=== PATIENT | male | born 1980 | race Caucasian/White ===

== ENCOUNTER 2024-02-22 21:47 | Inpatient (IN) | payer MEDICAID, SELFPAY ==
[2024-02-22 21:48] VITALS: BMI 25.0
[2024-02-22 21:52] VITALS: BP 139/55; PULSE 157; RESP 24; TEMP 39; O2SAT 95
--- NOTE | 2024-02-22 22:19 | EDNOTE_ITS ---
ED Fever RME/HPI General Chief Complaint: Fever Stated Complaint: FEVER Time Seen by Provider: 02/22/24 22:16 Source: patient Arrival date/time: 02/22/24 21:47 Mode of arrival: ambulatory Limitations: no limitations RME / HPI RME / HPI Narrative: --- DR. ESTRADA MAIN ED EVALUATION: 43-year-old male coming in with fever over the last 2 to 3 days despite Tylenol Motrin. Patient has nonproductive cough over the last 2 to 3 days. The patient has not taken his fever but he states that he feels hot. Active chills. The patient is also worried because he has not had his sutures out. He had surgery February 05 from the hospital and returned on February 17 here to the emergency department to have his sutures removed. The patient got frustrated and decided to leave without being seen. Chest x-ray that day on February 17 showed multiple pneumonia. Patient states he feels generally bad. Patient has no discharge at the sutures that were not removed. Requesting that we remove his sutures. No dysuria, back pain, neck pain, vomiting. Related Data Home Medications ?Medication ?Instructions ?Recorded ?Confirmed No Known Home Medications 02/23/24 02/23/24 Allergies Allergy/AdvReac Type Severity Reaction Status Date / Time No Known Allergies Allergy Verified 02/22/24 21:47 Review of Systems Review of Systems Systems Reviewed: All systems reviewed, normal except as documented Past Medical History Past Medical History NEUROLOGIC: Negative Seizures CARDIAC: Negative Congestive Heart Failure RESPIRATORY: Negative Chronic Obstructive Pulmonary Disease (COPD) GENITOURINARY: Negative Renal Disease ENDOCRINE: Negative Diabetes Mellitus Type 1 or Diabetes Mellitus Type 2 OTHER HISTORY: Negative Blood Transfusions, Blood Transfusion Reaction or Anesthesia Reactions Social History SMOKING STATUS: Never smoker Physical Exam Narrative Physical exam: Patient appears slightly diaphoretic but talking full sentences General Limitations: no limitations Head Head exam: atraumatic ENT ENT exam: Present normal exam and mucous membranes dry Neck Neck exam: Present normal inspection, full ROM and trachea midline Chest Chest inspection: Present normal inspection and symmetric chest wall rise Cardiovascular Cardiovascular exam: Present normal rhythm, tachycardia and normal heart sounds; Absent irregular rhythm, systolic murmur or diastolic murmur Abdominal Exam Abdominal exam: Present soft and normal bowel sounds Extremities Exam Extremities exam: Present normal inspection, full ROM and other (Left upper extremity forearm with approximately [address] with good scar tissue with no erythema no expressible discharge. Nontender to touch and no fluctuance.); Absent tenderness, normal capillary refill, pedal edema or joint swelling Back Exam Back exam: Present normal inspection and full ROM Neurological Exam Neurological exam: Present alert, oriented X3 and CN II-XII intact Psychiatric Psychiatric exam: Present normal affect and normal mood Skin Skin exam: Present warm, dry, intact and normal color ED Exam General Limitations: Present no limitations Head Head exam: Present atraumatic ENT ENT exam: Present normal exam and mucous membranes dry Neck Neck exam: Present normal inspection, full ROM and trachea midline Chest Chest inspection: Present normal inspection and symmetric chest wall rise Cardiovascular Cardiovascular exam: Present normal rhythm, tachycardia and normal heart sounds; Absent irregular rhythm, systolic murmur or diastolic murmur Abdominal Exam Abdominal exam: Present soft and normal bowel sounds Extremities Exam Extremities exam: Present normal inspection, full ROM and other (Left upper extremity forearm with approximately [address] with good scar tissue with no erythema no expressible discharge. Nontender to touch and no fluctuance.); Absent tenderness, normal capillary refill, pedal edema or joint swelling Back Exam Back exam: Present normal inspection and full ROM Neurological Exam Neurological exam: Present alert, oriented X3 and CN II-XII intact Psychiatric Psychiatric exam: Present normal affect and normal mood Skin Skin exam: Present warm, dry, intact and normal color Course Course Course Narrative: CXR is ordered for determining etiology of fever. 3 sutures are removed from the forearm. Sepsis alert initiated. Orders made at this time are congruent with ED Adult Sepsis Order List. Re-evaluation is to be completed. Sepsis reassessment performed consisting of lab review, vitals, physical exam including auscultation of heart, lungs, and visual evaluation of capillary refills, mucosal membranes and extremities. Quality Measures none Orders Category Date Time Status Admit to Inpatient Status Routine Admission 02/23/24 02:58 Active Patient Condition Routine Admission 02/23/24 02:57 Ordered Activity as Tolerated Routine Care 02/23/24 02:59 Ordered Bedside COVID-19 Antigen Test NOW Care 02/23/24 02:53 Active Bedside COVID-19 Antigen Test NOW Care 02/23/24 02:55 Completed Bedside Influenza A&B Antigen Test NOW Care 02/23/24 02:54 Completed COVID-19 Screening Questionnaire NOW Care 02/23/24 02:[address] Screening NOW Care 02/22/24 22:31 Active Repeater Operator STAT Care 02/22/24 22:29 Active Continuous Pulse Oximetry NOW Care 02/23/24 02:57 Completed Continuous Pulse Oximetry STAT Care 02/22/24 22:29 Completed EKG (ED ONLY) *Do not use* NOW Care 02/22/24 22:29 Completed Insert IV NOW Care 02/22/24 22:29 Active NPO STAT Care 02/22/24 22:29 Active Notify provider NEEDED Care 02/23/24 02:57 Active Sequential Compression Device QSHIFT Care 02/23/24 02:57 Active Strict Intake and Output Routine Care 02/22/24 22:29 Ordered Diet Regular Diet 02/23/[address] UE LT w con Stat Exams 02/22/24 22:29 Taken EKG (ED Only) Stat Exams 02/22/24 22:29 Draft XR chest 1V SEPSIS PROTOCOL Stat Exams 02/22/24 22:30 Completed B-Type Natriuretic Peptide Stat Lab 02/22/24 23:09 Completed Basic Metabolic Panel AM DRAW Lab 02/23/24 04:35 Completed Basic Metabolic Panel AM DRAW Lab 02/24/24 05:00 Ordered Basic Metabolic Panel AM DRAW Lab 02/25/24 05:00 Ordered Blood Culture (Lab) Stat Lab 02/22/24 23:09 Received CBC AM DRAW Lab 02/23/24 04:35 Results CBC AM DRAW Lab 02/24/24 05:00 Ordered CBC AM DRAW Lab 02/25/24 05:00 Ordered CBC Stat Lab 02/22/24 23:09 Completed Cocci Serology IgM with reflex to IgG [Cocci Serology, Lab 02/23/24 04:35 Received Unk History] Stat Comprehensive Metabolic Panel Stat Lab 02/22/24 23:09 Completed Drug Screen,Urine Stat Lab 02/23/24 00:05 Completed LDH (Lactate Dehydrogenase) Stat Lab 02/22/24 23:09 Completed Lactate (Lactic Acid) Stat Lab 02/22/24 23:09 Completed Lactic Acid, 3 HR Stat Lab 02/23/24 02:38 Completed Lipase Stat Lab 02/22/24 23:09 Completed Magnesium Stat Lab 02/22/24 23:09 Completed Partial Thromboplastin Time Stat Lab 02/22/24 23:09 Completed Phosphorous Stat Lab 02/22/24 23:09 Completed Procalcitonin Stat Lab 02/22/24 23:09 Completed Prothrombin Time with INR Stat Lab 02/22/24 23:09 Completed Quantiferon-TB* Stat Lab 02/23/24 05:00 Ordered Troponin I Stat Lab 02/22/24 23:09 Completed Urinalysis Stat Lab 02/23/24 00:05 Completed Urine Culture Stat Lab 02/23/24 00:05 Received Acetaminophen Tab [Tylenol Tab] Med 02/23/24 02:57 Active 650 mg PO Q6H PRN Ampicillin/Sulbac Inj [Unasyn Inj] 3 gm Med 02/22/24 22:29 Discontinued Sodium Chloride 0.9% (P) [NS 0.9% mini bag] 100 ml IV X1 Ketorolac Inj [Toradol Inj] Med 02/23/24 01:58 Discontinued 30 mg IVP X1 ONE Ondansetron Inj [Zofran Inj] Med 02/22/24 22:29 Active 4 mg IV Q6HR PRN Sodium Chloride 0.9% 1000 ml [Ns] 1,914 ml Med 02/22/24 22:29 Discontinued IV 1,914 mls/hr Vancomycin/Ns 1 gm Ivpb 200 ml Med 02/22/24 22:29 Discontinued IV X1 Code Status Routine Oth 02/23/24 02:57 Ordered Oxygen Delivery NOW RT 02/22/24 22:29 Active Oxygen Delivery PRN RT 02/23/24 02:57 Active Vital Signs Vital signs: Vital Signs Temperature 102.2 F H 02/22/24 21:52 Pulse Rate 157 H 02/22/24 21:52 Respiratory Rate 24 H 02/22/24 21:52 Blood Pressure 139/55 H 02/22/24 21:52 Pulse Oximetry (%) 95 02/22/24 21:52 Oxygen Delivery Method Room Air 02/22/24 21:52 Procedures -ED Laceration Laceration 1: Site: other (Left forearm. [address] Verbal consent is obtained. 3 sutures are removed. No complications. No local is needed.) Fever MDM Narrative MDM Narrative:: ? Scribe Attestation: I, Violet Cowan am scribing for and in the presence of Dr. Downs. Provider Notation: Although this document has been carefully reviewed, there may still be some phonetic and other typographical errors. These errors are purely grammatical due to imperfections in the software program and should not be construed in any way to compromise the substance of the patient's medical care during this visit. Patient data External records reviewed:: [facility] previous records Clinical information provided by:: patient Social determinants that could affect healthcare access:: none Patient has the following chronic illnesses:: None How is presenting disease/condition affected by chronic disease/condition?: no chronic disease Evaluation data The following diagnostics were reviewed and interpreted by me:: lab results, radiology exam(s) and EKG tracing(s) Lab and/or radiology exams considered but not ordered:: None Interpretation Summary: I personally reviewed the radiology data and agree with the radiologist's interpretation. Examination: PA chest single view Technique: Upright PA chest single view Exam date and time: February 22, 2024 at 10:41 PM Indications: Sepsis today Findings: Bilateral multiple pulmonary nodules, the largest in the right upper lobe 35 mm in the left lung midlung 27 mm Normal heart size Pneumonia at both bases and in the lingular segment Intact osseous structures Impression: Bilateral pneumonia Lung carcinoma versus pulmonary nodular metastatic disease, recommend CT chest post intravenous contrast follow-up Dictated By: Jacky Cross MD Left elbow CT with intravenous contrast. Axial images with coronal and sagittal reconstructions. Clinical history: Sepsis. Discharge from wound. Findings: There is subcutaneous edema posteriorly. No fluid collection or joint effusion. No acute osseous process. Impression: Subcutaneous edema. No abscess. Report Electronically Signed By: Beni Cruz 02/23/2024 2:23:05 AM [EST] Medications / Prescriptions Medications or Prescriptions considered but not ordered:: None Medication administrations:: Medication Administration History Acetaminophen (Acetaminophen 325 Mg Tablet) 650 mg PO Q6H PRN PRN Reason: Mild Pain 1-3 or Fever >100.3 Stop: 03/24/24 02:56 Albuterol/Ipratropium (Albuterol/Ipratropium (Duoneb) Rt Brittney 3 Ml Nebu) 3 ml INH Q6HRRT PRN PRN Reason: Shortness of Breath Stop: 03/24/24 06:59 Piperacillin/Tazobactam/Dextrose (Zosyn) 3.375 gm in 50 mls @ 12.5 mls/hr IV Q8HR BARB Stop: 03/01/24 05:59 Last Admin: 02/23/24 06:24 Dose: 12.5 mls/hr Documented By: OANH Vancomycin/Sodium Chloride (Vancomycin/Ns 1 Gm Ivpb) 200 mls @ 120 mls/hr IV Q12H BARB; Protocol Stop: 03/01/24 09:59 Vancomycin/Sodium Chloride (Vancomycin/Ns 1 Gm Ivpb) 200 mls @ 120 mls/hr IV X1 ONE Stop: 02/23/24 11:39 Ondansetron HCl (Ondansetron Inj 2 Mg/Ml Inj 2 Ml) 4 mg IV Q6HR PRN PRN Reason: NAUSEA OR VOMITING Stop: 03/23/24 22:28 Pharmacy Consult (Pharmacy To Dose Vancomycin) 1 each IV QDAY PRN PRN Reason: PROTOCOL Stop: 03/24/24 08:59 Discontinued Medications Sodium Chloride (Ns) 1,914 mls @ 1,914 mls/hr 30 ml/kg infuse over 60 min (1914 ml) IV .Q1H ONE Stop: 02/22/24 23:28 Last Infusion: 02/23/24 00:32 Dose: Infused Documented By: Admin: 02/22/24 23:21 Dose: 1,914 mls/hr Documented By: Ampicillin Sodium/Sulbactam (Sodium 3 gm/ Sodium Chloride) 100 mls @ 200 mls/hr IV X1 ONE Stop: 02/22/24 22:30 Last Infusion: 02/23/24 01:45 Dose: Infused Documented By: Admin: 02/23/24 00:30 Dose: 200 mls/hr Documented By: EE Vancomycin/Sodium Chloride (Vancomycin/Ns 1 Gm Ivpb) 200 mls @ 120 mls/hr IV X1 ONE Stop: 02/23/24 00:08 Last Infusion: 02/23/24 03:28 Dose: Infused Documented By: Admin: 02/23/24 01:41 Dose: 120 mls/hr Documented By: OANH Sodium Chloride (Ns) 1,000 mls @ 999 mls/hr IV .Q1H1M ONE Stop: 02/23/24 04:34 Last Infusion: 02/23/24 05:16 Dose: Infused Documented By: Admin: 02/23/24 03:44 Dose: 999 mls/hr Documented By: LINCOLN Ketorolac Tromethamine (Ketorolac Inj 30 Mg/Ml Vial) 30 mg IVP X1 ONE Stop: 02/23/24 01:59 Last Admin: 02/23/24 02:06 Dose: 30 mg Documented By: OANH Potassium Phos/Sodium Phos ([facility] 1 Packet (1.5 Gm)) 1 packet PO X1 ONE Stop: 02/23/24 04:18 Last Admin: 02/23/24 06:24 Dose: 1 packet Documented By: OANH As above Consultations Consultation(s) initiated? (list below): Yes Consultation #1 (Physician, Specialty, Details): Case d/w hospitalist team, accepts for admission Diagnosis Fever Differential Diagnosis: cellulitis, fever of unknown origin, viral infection and sepsis Most likely diagnosis given after review of the tests above:: Pneumonia, Sepsis, Lactic acid increased Admission Indicated Admission indicated?: indicated Admission Request Was there a request for admission?: Yes Admission Attestation Admission request attestation: Discussed case with [] from Hospitalist service regarding admission. Discussed patients ED course, exam findings, labs, and radiology results. The Hospitalist [agrees,declines] to accept the patient for admission. Disposition Plan Disposition Plan: Admit Discharge Plan Plan Patient Disposition: Admit Acute Care w/in Hospital Patient condition on transfer: Stable Problem List Clinical Impression: Pneumonia, Sepsis, Lactic acid increased
--- NOTE | 2024-02-22 22:29 | XR_ITS ---
Examination: CT left elbow, with intravenous contrast. 2-D sagittal reconstructions. 2-D coronal reconstructions. 3-D reconstructions. Date and time of exam:February 23, 2024 0115 hrs. Indications: Redness swelling and pain involving the elbow status post surgery 3 weeks ago, fever sepsis CTDI: vol (mGy):5 DLP: (mGycm):113 Technique: Multiple 1.25 mm axial sections of the left elbow with intravenous contrast and 50 cc Isovue-370 have been obtained. 2-D sagittal and coronal reconstructions have been obtained. 3-D reconstructions have been obtained. Low dose protocols were performed. One or more of the following dose reduction techniques were used; automated exposure control, adjustment of the mA and/or KV according to patient size, use of iterative reconstruction technique. Findings: No fracture or dislocation No cortical bone destruction Edema in the subcutaneous fatty tissue with skin thickening No definite soft tissue abscess However, MRI elbow without contrast follow-up would be superior in assessing for soft tissue inflammation, infection, abscess as well as excluding osteomyelitis Impression: No fracture No ehsan cortical bone destruction Cellulitis pattern
--- NOTE | 2024-02-22 22:29 | EKG_ITS ---
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
--- NOTE | 2024-02-22 22:30 | XR_ITS ---
Examination: PA chest single view Technique: Upright PA chest single view Exam date and time: February 22, 2024 at 10:41 PM Indications: Sepsis today Findings: Bilateral multiple pulmonary nodules, the largest in the right upper lobe 35 mm in the left lung midlung 27 mm Normal heart size Pneumonia at both bases and in the lingular segment Intact osseous structures Impression: Bilateral pneumonia Lung carcinoma versus pulmonary nodular metastatic disease, recommend CT chest post intravenous contrast follow-up
[2024-02-22 22:42] VITALS: PULSE 128
[2024-02-22 23:20] LABS: Basophils # (Auto) 0.1 Thou/mm3 (0.0-0.2); Basophils % (Auto) 0 % (0-2.5); Eosinophils # (Auto) 0.1 Thou/mm3 (0.0-0.5); Eosinophils % (Auto) 0 % (0-10); Hematocrit 31.3 % (41.0-53.0); Hemoglobin 10.5 g/dL (13.5-16.0); Immature Granulocytes % (Auto) 1 % (0-0); Lymphocytes # (Auto) 1.7 Thou/mm3 (1.0-4.8); Lymphocytes % (Auto) 11 % (10-50); Mean Corpuscular HGB Conc 33.5 g/dl (31.0-37.0); Mean Corpuscular Hemoglobin 29.7 pg (25.0-35.0); Mean Corpuscular Volume 88 fL (80-100); Monocytes # (Auto) 1.5 Thou/mm3 (0.0-0.8); Monocytes % (Auto) 9 % (0-12); Neutrophils # (Auto) 12.6 Thou/mm3 (1.8-7.7); Neutrophils % (Auto) 78 % (37-80); Nucleated Red Blood Cell % 0 /100 WBC (0); Platelet Count 410 Thou/mm3 (140-440); RDW Standard Deviation 43.6 fL (35.1-43.9); Red Blood Count 3.54 Miln/mm3 (4.50-5.90); White Blood Count 16.2 Thou/mm3 (3.8-10.6)
[2024-02-22] MEDS: SODIUM CHLORIDE 0.9% 1000 ML 1,914 ML 1914 ML IV (23:21)
[2024-02-22 23:35] VITALS: TEMP 37.3
[2024-02-22 23:35] LABS: INR 1.2 (0.9-1.3); Partial Thromboplastin Time 23.3 Seconds (22.0-36.0); Prothrombin Time 12.8 Seconds (9.0-12.2)
[2024-02-22 23:42] LABS: B-Type Natriuretic Peptide 41 pg/mL (0-100)
[2024-02-22 23:45] LABS: Alanine Aminotransferase 56 U/L (10-49); Albumin, Serum 3.4 gm/dL (3.5-5.0); Anion Gap 6 (7-16); Aspartate Amino Transferase 39 U/L (0-34); BUN/Creatinine Ratio 23 Ratio (12-20); Bilirubin,Total 1.2 mg/dL (0.3-1.2); Blood Urea Nitrogen 23 mg/dL (9-23); Calcium 8.8 mg/dL (8.3-10.6); Calcium (Corrected) 9.3 mg/dL (8.5-10.1); Carbon Dioxide 25.6 mMol/L (20.0-31.0); Chloride 96 mMol/L (98-107); Estimated Creatinine Clearance 86.8 mL/min (>60); Glucose 110 mg/dL (74-106); LDH (Lactate Dehydrogenase) 200 U/L (120-246); Magnesium 1.6 mg/dL (1.6-2.6); Osmolality,Calculated 261 (275-295); Potassium 4.5 mMol/L (3.4-5.1); Sodium 128 mMol/L (136-145); Total Protein 6.5 gm/dL (5.7-8.2); Troponin I 0.023 ng/mL (0.0-0.045); eGFR > 60 See Note
[2024-02-22 23:46] LABS: Albumin/Globulin Ratio 1.1 (1.2-2.2); Alkaline Phosphatase 709 U/L (46-116); Globulin 3.1 gm/dL (2.3-3.5); Lipase 37 U/L (12-53); Procalcitonin 0.87 ng/ml (0.0-0.49)
[2024-02-23] VITALS (13 sets, daily range): BP systolic 106–143; BP diastolic 55–89; PULSE 68–95; RESP 16–98; TEMP 36.1–36.9; O2SAT 89–99; BMI 24.9
[2024-02-23 00:10] LABS: Collection Type, Urine Clean Catch
[2024-02-23 00:18] LABS: Bilirubin,Urine Negative (Negative); Blood,Urine 1+ (Negative); Clarity,Urine Clear (Clear/Hazy); Color,Urine Yellow (Lt Yel-Yel); Glucose, Urine Negative (Negative); Ketones,Urine Negative (Negative); Leukocyte Esterase,Urine Positive (Negative); Nitrite,Urine Negative (Negative); Protein,Urine 1+ (Neg - Trace); RBC,Urine 12 /hpf (0-3); Specific Gravity,Urine 1.014 (1.001-1.035); Squamous Epithelial Cell,Urine < 1 /hpf (0-5); Urobilinogen,Urine Negative mg/dL (0.0-1.0); WBC,Urine 12 /hpf (0-5)
[2024-02-23] MEDS: AMPICILLIN/SULBAC INJ 3 GM in SODIUM CHLORIDE 0.9% (P) 100 ML IV (00:30)
--- NOTE | 2024-02-23 00:33 | PC.NURSE ---
Initial contact of pt at this time. In to assess pt. pt states he came to to er with c/o fever, cough 1-2 days, chills and shakin. pt was recently admitted 02/06/24 and was seen by gen surgery Dr. Baltazar, after using iv drugs and having needle break off on arm. Pt placed on cardiac and vital sign monitoring. sepsis initiated in E while being triage. pt updated on plan of care. NAD noted at this time. Respirations are even and unlabored. call light within reach.
[2024-02-23] MEDS: VANCOMYCIN/NS 1 GM IVPB 200 ML IV ×3 (01:41→22:41)
[2024-02-23] MEDS: KETOROLAC INJ 30 MG/ML VIAL IVP ×2 (02:06→11:07)
[2024-02-23 02:15] LABS: Reflex Lactate? Y
--- NOTE | 2024-02-23 02:23 | PRELIM_ITS ---
Left elbow CT with intravenous contrast. Axial images with coronal and sagittal reconstructions.Clini aryan history: Sepsis. Discharge from wound.Findings: There is subcutaneous edema posteriorly. No fluid collection or joint effusion. No acute osseous process. Impression: Subcutaneous edema.No abscess. Report Electronically Signed By: Beni Cruz 02/23/2024 2:23:05 AM [EST]
[2024-02-23 02:41] LABS: Lactic Acid, 3 HR 0.8 mMol/L (0.4-2.0)
[2024-02-23] MEDS: SODIUM CHLORIDE 0.9% 1000 ML 1,000 ML 999 ML IV (03:44)
--- NOTE | 2024-02-23 03:49 | PD.RESHP ---
Documentation for date of: 02/23/24 [facility] History of Present Illness History of present illness: CC: fevers at home Patient is a 43-year-old male with a past medical history of substance use disorder (meth and heroin) who presented to the emergency room with a history of subjective fever and cough for about 1 and 2 days. Patient stated subjective fevers worsened worsened overnight on 02/22/2024 when he developed chills and shaking. Stated fevers occur in the daytime and nighttime. Cough is mostly dry cough but has had occasional productive cough that is mostly clear phlegm with some hemoptysis (streaks of blood). Patient was admitted recently on 02/06/[address] Baltazar after IV needle used from substance use broke off an exploratory incision made to remove retained needle on left upper arm near elbow. Patient denied being homeless or incarcerated. Currently lives with his brother, where a lot of people coming in now. Denied history of TB or cocci. Denied any chest pain or shortness of breath. Denied diarrhea. Admitted on 02/23/2024 for Sepsis secondary to pneumonia. ER Course: Vitals: T 102.2, HR 157, RR 24, BP 139/55, SpO 95% RA CBC WBC 16.2, Hgb 10.5, Hct 31.3, MCV 88 CMP: Na 128 (L) Phosphorus 2.0 Lactic 3.0, 0.8 AST 39, ALT 56, Alkaline Phosphatase 709 Procalcitonin 0.87 COVID, Influenza: negative EKG: sinus Tachy Cxr (02/22/2024): Bilateral Pneumonia. Lung carcinoma versus pulmonary nodular metastatic disease, CT Chest Cxr (02/18/2024): Soft nodular opacities in both upper lobes which may be infectious in etiology PMH: None Past Surgical History: Exploratory incision for retained needle removal Home Medication: None Social History: -Denied Alcohol Use -Denied cigarette use (brother smokes in the house) -Meth and Heroin (last used early January) Allergies: None Code Status: Full Code Review of Systems Constitutional Comments: General appearance: NO weight change, NO fatigue, NO weakness, YES fever (at night and day), YES chills, NO night sweats, YES cough (occasionally productive with streaks of blood) Skin: NO rash, NO itching, NO sores, NO moles HEENT: NO Trauma, NO nausea, NO vomiting, NO visual changes, NO blurry vision, NO double vision, NO tinnitus, NO vertigo, NO ear discharge, NO rhinorrhea, NO stuffiness, NO sneezing, NO allergy, NO epistaxis. NO Hoarseness, NO sore throat, NO swollen neck. Cardiac: NO Palpitations, NO dyspnea on exertion, NO orthopnea, NO paroxysmal nocturnal dyspnea, NO edema Respiratory: NO Shortness of Breath, NO Wheezing, YES, Mostly Dry Cough, NO Sputum, YES hemoptysis GI:NO appetite, NO nausea, NO vomiting, NO dysphagia, NO changes in bowel frequency, NO stool color, NO diarrhea, NO constipation, NO hemetemesis, NO hemorrhoids, NO melena, NO hematechezia, NO abdominal pain, NO jaundice Renal: NO frequency, NO hesitancy, NO urgency, NO hematuria, NO nocturia, NO incontinence MSK: NO muscle weakness, NO gout, NO arthritis, NO muscle stiffness Neuro: NO headaches, NO tremors, NO weakness, NO paralysis, NO seizures, NO loss of consciousness, NO numbness. Hem: NO anemia, NO easy bruising/bleeding, NO petechiae, NO purpura Endo: NO heat/cold intolerance, NO excessive sweating, NO polyuria, NO polydipsia, NO polyphagia, NO thyroid problems, NO diabetes Pysch: NO mood, NO anxiety, NO depression Exam Vital Signs Temp Pulse Resp BP Pulse Ox O2 Del Method 98.5 F 73 18 106/55 L 99 Room Air 02/23/24 03:00 02/23/24 03:00 02/23/24 03:00 02/23/24 03:00 02/23/24 03:00 02/23/24 03:00 Narrative Exam General Appearance: Alert & Oriented X3, well-nourished Male who is lying in bed in no acute distress HEENT: Skull symmetrical and atraumatic. Conjunctivae pink and moist. Pupils equal, round, reactive to light and accommodation (PERRL). External ear without lesion or discharge. Straight, nares patient, mucosa pink, no discharge. No thyroid nodule appreciated. No cervical lymphadenopathy. Cardio: Normal Rate and Rhythm with S1 and S2 heart sounds. No murmurs or extra heart sounds auscultated. No bruits on carotid auscultation. No peripheral edema or cyanosis. Lungs: Symmetric with good expansion. Chest and back non-tender. Breath sounds vesicular without crackles, wheezing or rhonchi Abdomen: Non-tender, Non-distended, Normal Reactive Bowel Sounds Neuro: Alert, cooperative, oriented to person, place, and time. Speech clear. CN grossly intact. Upper motor strength 5/5 and Lower motor strength 5/5. Sensation intact. Results: Labs 02/23/24 04:35 02/23/24 04:35 Labs: Short CBC 02/22/24 Range/Units 23:09 WBC 16.2 H (3.8-10.6) Thou/mm3 Hgb 10.5 L (13.5-16.0) g/dL Hct 31.3 L (41.0-53.0) % Plt Count 410 D (140-440) Thou/mm3 BMP 02/22/24 23:09 Sodium 128 L Potassium 4.5 Chloride 96 L Carbon Dioxide 25.6 BUN 23 Creatinine 1.0 Glucose 110 H Calcium 8.8 Cardiac Enzymes 02/22/24 Range/Units 23:09 Troponin I 0.023 (0.0-0.045) ng/mL Liver Function 02/22/24 Range/Units 23:09 Total Bilirubin 1.2 (0.3-1.2) mg/dL AST 39 H (0-34) U/L ALT 56 H (10-49) U/L Alkaline Phosphatase 709 H (46-116) U/L Albumin 3.4 L (3.5-5.0) gm/dL Urine 02/23/24 Range/Units 00:05 Urine Color Yellow (Lt Yel-Yel) Urine Clarity Clear (Clear/Hazy) Urine pH 6.0 (5.0-7.0) Ur Specific [place] 1.014 (1.001-1.035) Urine Protein 1+ A (Neg - Trace) Urine Glucose (UA) Negative (Negative) Quality Measures Quality Measures none Medications Home Medications and Allergies Home Medications ?Medication ?Instructions ?Recorded ?Confirmed ?Type No Known Home Medications 02/23/24 02/23/24 History Allergies Allergy/AdvReac Type Severity Reaction Status Date / Time No Known Allergies Allergy Verified 02/22/24 21:47 Visit Medications Acetaminophen (Acetaminophen 325 Mg Tablet) 650 mg PO Q6H PRN PRN Reason: Mild Pain 1-3 or Fever >100.3 Stop: 03/24/24 02:56 Piperacillin/Tazobactam/Dextrose (Zosyn) 3.375 gm in 50 mls @ 12.5 mls/hr IV Q8HR BARB Stop: 03/01/24 05:59 Sodium Chloride (Ns) 1,000 mls @ 999 mls/hr IV .Q1H1M ONE Stop: 02/23/24 04:34 Last Admin: 02/23/24 03:44 Dose: 999 mls/hr Ondansetron HCl (Ondansetron Inj 2 Mg/Ml Inj 2 Ml) 4 mg IV Q6HR PRN PRN Reason: NAUSEA OR VOMITING Stop: 03/23/24 22:28 Pharmacy Consult (Pharmacy To Dose Vancomycin) 1 each IV QDAY BARB Stop: 03/24/24 08:59 Discontinued Medications Sodium Chloride (Ns) 1,914 mls @ 1,914 mls/hr 30 ml/kg infuse over 60 min (1914 ml) IV .Q1H ONE Stop: 02/22/24 23:28 Last Infusion: 02/23/24 00:32 Dose: Infused Ampicillin Sodium/Sulbactam (Sodium 3 gm/ Sodium Chloride) 100 mls @ 200 mls/hr IV X1 ONE Stop: 02/22/24 22:30 Last Infusion: 02/23/24 01:45 Dose: Infused Vancomycin/Sodium Chloride (Vancomycin/Ns 1 Gm Ivpb) 200 mls @ 120 mls/hr IV X1 ONE Stop: 02/23/24 00:08 Last Infusion: 02/23/24 03:28 Dose: Infused Ketorolac Tromethamine (Ketorolac Inj 30 Mg/Ml Vial) 30 mg IVP X1 ONE Stop: 02/23/24 01:59 Last Admin: 02/23/24 02:06 Dose: 30 mg Assessment & Plan Plan Patient is a 43-year-old male with a past medical history of substance use disorder (meth and heroin) was admitted on 02/23/2024 for Sepsis secondary to CAP pneumonia versus left upper extremity cellulitis. #Sepsis Secondary to Pneumonia vs LUE cellulitis #Community Acquired Pneumonia #Transaminitis Etiology: Patient presented with dry cough, pyrexia, and pleurtic chest pain that increased with inspiration and Cxr showing bilateral pneumonia, CAP likely. Given endemic region of cocci, this can not be ruled out. No history of incarceration or living in a senior living. DDx: Given recent surgery for a retained needle, consider cellulitis, although no discharge was noted on physical exam or erythema vs. Malignancy vs. needle use for heroin/meth endocarditis can not be ruled out but less likely as no murmur was noted on physical exam. Diagnostic Tests: Vitals: T 102.2, HR 157, RR 24, BP 139/55, SpO 95% RA CBC WBC 16.2, Hgb 10.5, Hct 31.3, MCV 88 Lactic 3.0, 0.8 AST 39, ALT 56, Alkaline Phosphatase 709 Procalcitonin 0.87 COVID, Influenza: negative Cxr (02/22/2024): Bilateral Pneumonia. Lung carcinoma versus pulmonary nodular metastatic disease, CT Chest Plan -Zosyn (02/23/2024--) -Vanco (02/23/2024-) -Acetaminophen 650 mg PRN Mild Pain or Fever -NS 1 Bolus -Duonebs PRN Q6HR -Blood Culture/Urine Culture -Toxicology -HIV 1 and 2 -Hep panel -Cocci -Quantiferon-TB -CRP -ESR -MRSA Swab -BMP -CBC -Consider CT Chest -Consider Echo -Consider General Surgery, Dr. Baltazar, appreciate recommendations #Hypovolemic, Hyposmolar, Moderate Hyponatremia #Electrolyte Imbalance Diagnostics: Likely secondary to sepsis and pyrexia. CMP: Na 128 (L) Phosphorus 2.0 Plan -NS 1 Liter Bolus (for sepsis) -Neutra Pack -consider urine electrolytes/Urine Na #Acute Anemia Acute anemia compared to previous admission (02/06/2024). Microcytic anemia, with low hbg and low MCV. RDW within range. Diagnostics: Hgb 10.5, Hct 31.3, MCV 88 Plan -Consider Iron Panel Health Maintenance: Disp: Pt is currently admitted to floors for further management of sepsis secondary to pneumonia, awaiting blood cultures. FEN: Regular Diet DVT: Compression Device Code: Full Code - The patient's plan was discussed with attending Dr. Marbella Hebert MD PGY1 Internal Medicine Attending Provider Attestation/Addendum I reviewed labs, imaging, EKG, home medications and prior available records. Face to face evaluation was performed by me. I have personally examined the patient and discussed assessment and plan with the IM team. I reviewed the resident note and agree with the plan with exceptions as below. 43-year-old male with history of IV drug use and polysubstance abuse including opiates who presented with a chief complaint of dry cough and worsening pain on the left upper extremity. Sepsis secondary to bilateral pneumonia versus left upper extremity cellulitis: In the setting of history of IV drug use. He does have bilateral lung opacities on chest x-ray and left upper extremity swelling/erythema around the recent surgery site without evidence of abscess. Started the patient on vancomycin and Zosyn IV which will cover for both sources. Sent blood cultures. Sent cocci IgM. Sent HIV screening test. Sent acute hepatitis panel. Ordered echocardiogram to rule out vegetations. History of IV drug use: Counseled the patient regarding the importance of stopping drugs. Transaminitis: Mild. Likely in the setting of drug use versus infection. Workup as above. Trend LFTs.
[2024-02-23 04:35] LABS: Amphetamine/Methamp Scrn,U Negative (Negative); Barbiturate Screen,Urine Negative (Negative); Benzodiazepines Screen,Urine Negative (Negative); Benzoylecgonine Screen, Ur Negative (Negative); Fentanyl Screen,Urine Positive (Negative); Opiate Screen,Urine Positive (Negative); THC Screen,Urine Negative (Negative)
[2024-02-23 05:37] LABS: Basophils # (Auto) 0.1 Thou/mm3 (0.0-0.2); Basophils % (Auto) 0 % (0-2.5); Eosinophils # (Auto) 0.1 Thou/mm3 (0.0-0.5); Eosinophils % (Auto) 0 % (0-10); Hematocrit 30.3 % (41.0-53.0); Hemoglobin 10.2 g/dL (13.5-16.0); Immature Granulocytes % (Auto) 2 % (0-0); Immature Granulocytes Auto 0.22 Thou/mm3 (0.00-0.00); Lymphocytes # (Auto) 2.4 Thou/mm3 (1.0-4.8); Lymphocytes % (Auto) 16 % (10-50); Mean Corpuscular HGB Conc 33.7 g/dl (31.0-37.0); Mean Corpuscular Hemoglobin 29.7 pg (25.0-35.0); Mean Corpuscular Volume 88 fL (80-100); Monocytes # (Auto) 1.3 Thou/mm3 (0.0-0.8); Monocytes % (Auto) 9 % (0-12); Neutrophils % (Auto) 73 % (37-80); Nucleated Red Blood Cell % 0 /100 WBC (0); Platelet Count 348 Thou/mm3 (140-440); RDW Standard Deviation 43.5 fL (35.1-43.9); Red Blood Count 3.43 Miln/mm3 (4.50-5.90)
[2024-02-23 06:04] LABS: Anion Gap 4 (7-16); BUN/Creatinine Ratio 26 Ratio (12-20); Blood Urea Nitrogen 18 mg/dL (9-23); C-Reactive Protein 11.5 mg/dL (0.0-0.9); Chloride 107 mMol/L (98-107); Creatinine (Component) 0.7 mg/dL (0.6-1.3); Estimated Creatinine Clearance 124.1 mL/min (>60); Glucose 99 mg/dL (74-106); Osmolality,Calculated 279 (275-295); Potassium 4.6 mMol/L (3.4-5.1); Sodium 139 mMol/L (136-145); eGFR > 60 See Note
[2024-02-23] MEDS: NAPH,KPH MBDB 1 PACKET (1.5 GM) PO (06:24)
[2024-02-23] MEDS: PIPER/TAZO 3.375 GM 3.375 GM/50 ML BAG IV (06:24)
--- NOTE | 2024-02-23 06:42 | ECHO_ITS ---
Transthoracic Echo Report Ht (in): 66 Wt (lb): 155 Exam Location: [facility] Status: Inpatient Director Of Business Operations: Cristina Parsons Indications: Procedure Performed: BP: 158 / 98 HR: 79 Rhythm: Sinus Technical Quality: Fair MEASUREMENTS (Male / Female) Normal Values 2D ECHO LV Diastolic Diameter PLAX 4.7 cm 4.2 - 5.9 / 3.9 - 5.3 cm LV Systolic Diameter PLAX 3.1 cm IVS Diastolic Thickness 0.8 cm 0.6 - 1.0 / 0.6 - 0.9 cm LVPW Diastolic Thickness 1.0 cm 0.6 - 1.0 / 0.6 - 0.9 cm LV Relative Wall Thickness 0.4 LVOT Diameter 2.1 cm LA Volume Index 34.2 cm?/m? 16 - 28 cm?/m? Ascending Aorta Diameter 3.1 cm M-MODE Aortic Root Diameter MM 2.6 cm LA Systolic Diameter MM 3.1 cm LA Ao Ratio MM 1.2 AV Cusp Separation MM 2.0 cm DOPPLER AV Peak Velocity 148.0 cm/s AV Peak Gradient 8.8 mmHg AV Mean Gradient 4.0 mmHg AV Velocity Time Integral 30.3 cm LVOT Peak Velocity 113.0 cm/s LVOT Peak Gradient 5.1 mmHg LVOT Velocity Time Integral 24.0 cm LVOT Cardiac Index 3608.6 cm?/min?m? AV Area Cont Eq vti 2.7 cm? AV Area Cont Eq pk 2.6 cm? MV Peak Velocity 105.0 cm/s MV Peak Gradient 4.4 mmHg MV Mean Velocity 61.1 cm/s MV Mean Gradient 2.0 mmHg MV Area PHT 5.0 cm? Mitral E Point Velocity 113.0 cm/s Mitral A Point Velocity 92.6 cm/s Mitral E to A Ratio 1.2 LV E' Lateral Velocity 21.2 cm/s Mitral E to LV E' Lateral Ratio 5.3 LV E' Septal Velocity 9.9 cm/s Mitral E to LV E' Septal Ratio 11.4 TR Peak Velocity 258.0 cm/s TR Peak Gradient 26.6 mmHg FINDINGS Left Ventricle Normal left ventricular size, wall thickness, systolic function with no obvious regional wall motion abnormalities. The ejection fraction is visually estimated at 60-65%. Right Ventricle The right ventricle is normal in size and systolic function. The estimated right ventricular systoli c pressure, 36mmHg. RAP 5. Left Atrium The left atrium is normal by two-dimensional, color flow and Doppler imaging with no structural abnormalities, no thrombus formation present. Right Atrium The right atrium is normal by two-dimensional imaging, color flow and Doppler imaging with no struct ural abnormalities, no thrombus formation present. Atrial Septum The interatrial septum appears normal with no evidence of a shunt. Aorta The aorta is normal by two-dimensional, color flow and Doppler interrogation. Mitral Valve The mitral valve is normal by two-dimensional, color flow and Doppler interrogation. There is trace mitral valve regurgitation. Aortic Valve The aortic valve is trileaflet and normal by two-dimensional, color flow and Doppler interrogation. There is no significant aortic valve regurgitation. Tricuspid Valve The tricuspid valve is normal by two-dimensional, color flow and Doppler interrogation. There is mil d to moderate tricuspid valve regurgitation. Pulmonic Valve There is no significant pulmonic valve regurgitation. Vessels The pulmonary artery appears normal. The inferior vena cava pulmonary and hepatic veins appear deepthi l. Pericardium The pericardium is normal by two-dimensional imaging. There is no significant pericardial effusion. CONCLUSIONS No evidence of any valvular vegetation. Normal LV size and function. Estimated EF 60-65% Normal RV size and function. Estimated RVSP 36mmHg Trace MR. Mild to moderate TR. Jose Brewster (Electronically Signed) Final Date: 25 February 2024 09:06
[2024-02-23 07:07] LABS: Sed Rate (ESR) 91 mm/hr (0-15)
--- NOTE | 2024-02-23 07:51 | PC.NURSE ---
Received to room 382 via gurney from [facility], ambulated to bed, awake alert oriented, no apparent distress noted at this anastasiya, on room air, will cont. to monitor.
--- NOTE | 2024-02-23 07:51 | PC.CC ---
Pt Shlomo Yeh is a 43 yr old male, admitted to hospital services for sepsis 2/2 to CAP. NANNY CAREGIVER CC met with pt at bedside to complete initial assessment. At time of encounter pt is noted to be alert and oriented to person, place and situation. Pt able to confirm demographic information. Pt is from home, [address] [place] [address], where he lives with his brother Jarred Power [phone]. Pt identifies his brother as his surrogate DM. Pt is independent with ambulation and ADLs. Pt does not require supplemental O2. Pt states he is not diabetic and is not on dialysis. Pt states he does not have a primary provider at this time. Pt has presumptive [place]. Pt is an IV drug user. Pt would benefit from community resources for AOD services and primary care providers. At time of D/c pt will return home with family providing transport.
--- NOTE | 2024-02-23 10:24 | XR_ITS ---
Examination: CT chest with intravenous contrast 2-D sagittal and coronal reconstructions Exam date and time: February 23, 2024 1401 hrs. Indications: Hemoptysis today CTDI:vol (mGy) 9.62 DLP: (mGycm) 301 Technique: Multiple axial sections of the thorax have been obtained. Sections have been obtained, 3 mm slice thickness. Mediastinal and lung density settings have been obtained. Intravenous contrast administered, 60 cc [id number]. 2-D sagittal, coronal images obtained. Low dose protocols were performed. One or more of the following dose reduction techniques were used; automated exposure control, adjustment of the mA and/or KV according to patient size, use of iterative reconstruction technique. Findings: No thoracic aortic aneurysmal dilatation No pulmonary artery emboli Multiple nodular soft opacities throughout both lungs including 28 mm cavitary lesion in the left upper lobe Minimal bilateral pleural disease No visualized liver or splenic lesion The osseous structures are intact Impression: Negative for pulmonary artery emboli Extensive nodular soft opacities throughout the lungs including 20 mm cavitary lesion in the left upper lobe, differential would include infectious processes including fungal disease, septic emboli, pulmonary nodular metastatic disease not excluded, recommend follow-up chest imaging posttreatment
--- NOTE | 2024-02-23 10:30 | PC.NURSE ---
Bathroom toilet overflowed, pt. moved to room 381`.
[2024-02-23 11:17] LABS: HIV (1&2) Antibody Rapid Non-Reactive
[2024-02-23] MEDS: cefTRIAXone/D5w 1gm IV premix 50 ML IV (12:00)
[2024-02-23] MEDS: AZITHROMYCIN 250 MG TABLET 500 MG PO (12:34)
--- NOTE | 2024-02-23 13:42 | ESPR_ITS ---
<Statement entered by Tayler Mcduffie MD - 02/23/24 17:38> Patient was seen and examined at bedside. Patient has history of heroin abuse and meth abuse. Was brought to the ED due to history of cough, fever, and sweating. On questioning patient reported that he has lost almost 30 pounds in the last month as per his parents. Patient was admitted for sepsis secondary to pneumonia. Blood culture was sent and echo was ordered. Patient was also noticed to have a needle laura on his left cubital area seems to be mildly inflamed. CT scan was negative for abscess. U tox was positive for fentanyl and opioid Assessment plan # Sepsis secondary to pneumonia #Community-acquired pneumonia #TB rule out #Cocci rule out #Malignancy rule out #Infective endocarditis with shower embolism Differential diagnosis: TB, shower septic emboli, cocci, abscesses, malignancy. Plan patient is in isolation, pending AFB results, cocci results. Follow-up on the blood culture. Continue the patient on ceftriaxone, vancomycin, and we added azithromycin. Follow-up on the echo results. #Heroin withdrawal Plan ? Start the patient on diazepam 2 mg p.o. every 6 hours as needed for agitation ? Start the patient on loperamide and dicyclomine for diarrhea and abdominal cramps #Hyponatremia Will continue to monitor closely - Patient's plan and care discussed with my attending, Dr.Tingle Tayler Mcduffie MD Internal Medicine PGY-2 Documentation for date of: 02/23/24 Subjective Subjective Interval history: Patient seen at bedside. No acute overnight events. He is a 43-year-old male, with a history of substance abuse- meth and heroin who presented to the ED overnight with subjective fevers, chills cough with some occasional hemoptysis (streaks of blood). Chest x-ray showed bilateral pneumonia and he was started on IV Zosyn and vancomycin, admitted for management of sepsis secondary to pneumonia. Today, the patient has had no fever since admission, still has some cough but no shortness of breath and no chest pain, he is saturating 98% on room air. Complains of some pain in his left elbow from the point of needle removal. Still pending blood cultures. Further questioning today, he endorses a 20 pound weight loss in the last month, with accompanied night sweats. For this reason we will work him up for a TB diagnosis,Quantiferon and AFB cultures as well as chest CT and isolation precautions. Will also de-escalate his antibiotics to IV ceftriaxone and azithromycin. Exam Vital Signs Temp Pulse Resp BP Pulse Ox O2 Del Method 97.0 F 68 18 133/81 H 99 Room Air 02/23/24 08:00 02/23/24 08:45 02/23/24 08:45 02/23/24 08:00 02/23/24 08:45 02/23/24 08:00 Narrative Exam GENERAL: AAOX3 NEURO: NET MENDER grossly intact, moves extremities x4 HEENT: Moist mucosa. Eyes open, symmetrical, & clear CARDIO: No chest pain on palpation. Heart RRR, no obvious murmurs PULM: No noted coughing/dyspnea. Lungs CTA B/L GI: Abdomen soft, nondistended, no pain on palpation. BSx4 URO/FREIGHT BRAKE OPERATOR:: No further abnormalities noted. SKIN/MSK/EXT: Left elbow in the area of the lateral epicondyle has a laceration, with surrounding erythema but no drainage. Objective Labs 02/23/24 04:35 02/23/24 04:35 Labs: Laboratory Results - last 24 hr 02/22/24 02/23/24 02/23/24 23:09 00:05 02:38 WBC 16.2 H RBC 3.54 L Hgb 10.5 L Hct 31.3 L MCV 88 MCH 29.7 MCHC 33.5 RDW Std Deviation 43.6 Plt Count 410 D Neut % (Auto) 78 Lymph % (Auto) 11 [place] % (Auto) 9 Eos % (Auto) 0 Baso % (Auto) 0 Neut # (Auto) 12.6 H Lymph # (Auto) 1.7 [place] # (Auto) 1.5 H Eos # (Auto) 0.1 Baso # (Auto) 0.1 Immature Gran # (Auto) 0.20 H Absolute Nucleated RBC 0.00 Immature Gran % 1 H Nucleated RBC % 0 ESR PT 12.8 H INR 1.2 APTT 23.3 Sodium 128 L Potassium 4.5 Chloride 96 L Carbon Dioxide 25.6 Anion Gap 6 L BUN 23 Creatinine 1.0 Estim Creat Clear Calc 86.8 eGFR > 60 BUN/Creatinine Ratio 23 H Glucose 110 H Calculated Osmolality 261 L Lactic Acid 3.0 H 0.8 Calcium 8.8 Corrected Calcium 9.3 Phosphorus 2.0 L Magnesium 1.6 Total Bilirubin 1.2 AST 39 H ALT 56 H Alkaline Phosphatase 709 H Lactate Dehydrogenase 200 Troponin I 0.023 C-Reactive Prot, Quant B-Natriuretic Peptide 41 Total Protein 6.5 Albumin 3.4 L Globulin 3.1 Albumin/Globulin Ratio 1.1 L Lipase 37 Procalcitonin 0.87 H Ur Collection Type Clean Catch Urine Color Yellow Urine Clarity Clear Urine pH 6.0 Ur Specific [place] 1.014 Urine Protein 1+ A Urine Glucose (UA) Negative Urine Ketones Negative Urine Blood 1+ A Urine Nitrite Negative Urine Bilirubin Negative Urine Urobilinogen (Auto) Negative Ur Leukocyte Esterase Positive Urine RBC 12 H Urine WBC 12 H Ur Squamous Epith Cells < 1 Urine Bacteria None Urine Opiates Screen Positive A Urine Fentanyl Screen Positive A Ur Barbiturates Screen Negative U Amphetamin/Meth Scrn Negative U Benzodiazepines Scrn Negative U Cocaine Metab Screen Negative U Marijuana (THC) Screen Negative HIV 1&2 Antibody Rapid 02/23/24 04:35 WBC 15.0 H RBC 3.43 L Hgb 10.2 L Hct 30.3 L MCV 88 MCH 29.7 MCHC 33.7 RDW Std Deviation 43.5 Plt Count 348 D Neut % (Auto) 73 Lymph % (Auto) 16 [place] % (Auto) 9 Eos % (Auto) 0 Baso % (Auto) 0 Neut # (Auto) 11.0 H Lymph # (Auto) 2.4 [place] # (Auto) 1.3 H Eos # (Auto) 0.1 Baso # (Auto) 0.1 Immature Gran # (Auto) 0.22 H Absolute Nucleated RBC 0.00 Immature Gran % 2 H Nucleated RBC % 0 ESR 91 H PT INR APTT Sodium 139 D Potassium 4.6 Chloride 107 Carbon Dioxide 28.0 Anion Gap 4 L BUN 18 Creatinine 0.7 Estim Creat Clear Calc 124.1 eGFR > 60 BUN/Creatinine Ratio 26 H Glucose 99 Calculated Osmolality 279 Lactic Acid Calcium 8.0 L Corrected Calcium Phosphorus Magnesium Total Bilirubin AST ALT Alkaline Phosphatase Lactate Dehydrogenase Troponin I C-Reactive Prot, Quant 11.5 H B-Natriuretic Peptide Total Protein Albumin Globulin Albumin/Globulin Ratio Lipase Procalcitonin Ur Collection Type Urine Color Urine Clarity Urine pH Ur Specific [place] Urine Protein Urine Glucose (UA) Urine Ketones Urine Blood Urine Nitrite Urine Bilirubin Urine Urobilinogen (Auto) Ur Leukocyte Esterase Urine RBC Urine WBC Ur Squamous Epith Cells Urine Bacteria Urine Opiates Screen Urine Fentanyl Screen Ur Barbiturates Screen U Amphetamin/Meth Scrn U Benzodiazepines Scrn U Cocaine Metab Screen U Marijuana (THC) Screen HIV 1&2 Antibody Rapid Non-Reactive Quality Measures Quality Measures none Assessment & Plan Assessment Current Active Medications: Generic Name Dose Route Start Last Admin Trade Name Freq PRN Reason Stop Dose Admin Acetaminophen 650 mg 02/23/24 10:18 Acetaminophen 325 Mg Tablet PO 03/24/24 10:17 Q6HR PRN Pain and Fever >101 Albuterol/Ipratropium 3 ml 02/23/24 04:13 Albuterol/Ipratropium (Duoneb) Rt Brittney 3 Ml Nebu INH 03/24/24 06:59 Q6HRRT PRN Shortness of Breath Azithromycin 500 mg 02/23/24 10:45 02/23/24 12:34 Azithromycin 250 Mg Tablet PO 03/01/24 10:44 500 mg QDAY BARB Administration Ceftriaxone Sodium/Dextrose 50 mls @ 100 mls/hr 02/23/24 10:25 02/23/24 12:00 Rocephin/D5w 1gm Iv Premix IV 03/01/24 10:24 100 mls/hr QDAY BARB Administration Ondansetron HCl 4 mg 02/22/24 22:29 Ondansetron Inj 2 Mg/Ml Inj 2 Ml IV 03/23/24 22:28 Q6HR PRN NAUSEA OR VOMITING Plan Summary: The patient is a 43-year-old male with a past medical history of substance use disorder who presented to the ED with subjective fevers, chills, cough with occasional hemoptysis and was admitted on 02/23/2024 for sepsis secondary to community-acquired pneumonia. #Sepsis secondary to community-acquired pneumonia #?Tuberculosis The patient presented with subjective fevers and chills, pleuritic chest pain, cough with occasional hemoptysis. In the ED, the patient met 4/4 SIRS criteria with a WBC of 16.2 and lactic acid of 3.0, elevated CRP. Chest x-ray showed bilateral pneumonia. The patient was started on IV Zosyn and vancomycin. On further review today, the patient does endorse weight loss and night sweats, will work him up for possibility of tuberculosis. Plan: -De-escalate IV antibiotics: DC IV Zosyn and vancomycin -Commence IV ceftriaxone and azithromycin -Pending blood cultures -Pending cocci -QuantiFERON, AFB cultures pending -Chest CT with contrast -Isolation precautions #Hyponatremia On admission, the patient's sodium level was 128. Today, sodium is 139. Health maintenance: Dispo: MedSurg Diet: Regular diet GI: Pantoprazole DVT: SCDs Med Rec: Pending, f/u Code: Full Case was discussed with senior resident Dr Mcduffie PGY-2 and attending physician, Dr Vinicio Wren MD PGY-1 Attending Provider Attestation/Addendum I have discussed and was present for the essential components of the history, physical examination, diagnosis, and treatment plan with the resident. I agree with the patient's care as documented by the resident and amended herein by me. Tyler Mooney DO. Patient seen and evaluated this AM. In short the patient is a 43-year-old male with a significant past medical history of substance abuse with methamphetamines and heroin who presented to the ED for subjective fever and cough as well as generalized malaise and weakness over the last 1 to 2 weeks. Patient also endorsed hemoptysis in the last 2 to 3 days with blood clots however states he has not had any in the last day or so. Additionally, patient endorses night sweats to where he is completely drenched in sweat as well as a approximate 20 pound weight loss in the last 3 to 4 weeks. The patient denies any known tuberculosis contacts, denies any travel to foreign countries, or recent sick contacts. Of note, the patient also endorses pain in his left elbow where he recently had a needle removed that was broken off from his injection drug use, he states he has tried to keep it clean but it is painful however denies any purulent discharge out of the area. The area does look relatively clean however the edges do look a bit infected and is painful to the touch. The patient was initially admitted for sepsis secondary to Pneumonia, likely community-acquired secondary to gram-negative bacteria and left upper extremity cellulitis. The patient was initially started on vancomycin and Zosyn however we will de-escalate to ceftriaxone and and keep vancomycin at this time as the patient is much more stable, vital signs are much improved. The patient has been afebrile since last night. Patient also has a transaminitis, AST 39, ALT 56 and alk phos 709, with a low R factor likely indicating cholestatic pattern.. Significant labs today include a WBC of 15, hemoglobin 10.2, CRP 11.5 and Pro- [place] 0.87. Urinalysis is positive but the patient is asymptomatic however is already on antibiotics regardless. U tox significant for fentanyl and opiates. Hepatitis and cocci serologies pending, HIV negative. Due to the patient's concerning hemoptysis, weight loss, night sweats, cough, general malaise and fever, I am going to isolate the patient in order AFBs. We did order a CT chest with contrast today demonstrated an extensive nodular soft opacities throughout the lungs including 20 mm cavitary lesion in the left upper lobe with possible differentials including infection, fungal disease, septic emboli and metastatic pulmonary nodular disease. Will continue antibiotics as stated above. Blood and urine culture still pending, as far as the patient's left upper extremity cellulitis, it does appear clean and the patient is already antibiotics which will cover for any cellulitis, we will keep MRSA coverage at this time considering IV drug use and possible septic emboli. Infectious disease consulted, AFBs ordered. We will also order an abdominal ultrasound to assess for the patient's cholestatic pattern of elevated liver enzymes. An echo is ordered and pending to rule out any vegetations. Will also follow-up with blood and urine cultures. Will continue to monitor closely however the patient is in good spirits and is already feeling improved since admission. Although this document has been carefully reviewed, there may still be some phonetic and other typographical errors. These errors are purely grammatical due to imperfections in the software program and should not be construed in any way to compromise the substance of the patient's medical care during this visit.
--- NOTE | 2024-02-23 14:44 | XR_ITS ---
Examination: Abdomen sonogram, Limited Date and time of exam: February 23, 2024 at 1448 hrs. Indications: Elevated liver enzymes on laboratory examination February 12, 2024 Technique: Real-time addison scale transabdominal sonographic images of the upper abdomen obtained. Findings: Contracted gallbladder, gallbladder wall 0.5 cm No definite stones Normal common bile duct Pancreatic head 2.5 cm Liver 16.9 cm minimal free fluid in the upper abdomen no focal liver lesions Normal hepatopedal portal venous flow Patent IVC Impression: Repeat the gallbladder portion of the study with fasting
[2024-02-23 15:01] LABS: Cocci Serology, IgM Negative (Negative)
[2024-02-23 15:42] LABS: Total Iron Binding Capacity 186 mcg/dL (250-425)
[2024-02-23 15:51] LABS: Iron 24 mcg/dL (65-175); Percent Iron Saturation 12 % (20-55); Unsaturated Iron Binding 162 (225-295)
[2024-02-23] MEDS: DIAZEPAM 2 MG TABLET PO (16:12)
[2024-02-23 16:22] LABS: Cult AFB Sendout- Sputum* See Sep Rpt
--- NOTE | 2024-02-23 16:27 | PC.RT ---
AFB collected and delivered at 1620
[2024-02-23] MEDS: LORazepam 2 MG/ML VIAL IVP ×3 (19:24→21:18)
--- NOTE | 2024-02-23 21:00 | PC.NURSE ---
Pt having withdraw symptoms CIWA score of 18 Ativan x4mg IVP given total pt. Telesitter placed in room for safety. Safety reviewed with patient, pt agitated.
--- NOTE | 2024-02-23 21:20 | PC.NURSE ---
Pt cont to be agitated and restless having hallucinations Dr. Tyson aware upgraded to tele. Additional 2mg IVP ativan given.
[2024-02-23] MEDS: LORazepam 2 MG/ML VIAL 4 MG IV (22:40)
[2024-02-23] MEDS: LORazepam 2 MG/ML VIAL IV (23:40)
[2024-02-24] VITALS (7 sets, daily range): BP systolic 125–164; BP diastolic 87–98; PULSE 68–94; RESP 17–95; TEMP 36.1–37.4; O2SAT 94–97
[2024-02-24] MEDS: LORazepam 2 MG/ML VIAL IV ×3 (01:56→09:44)
--- NOTE | 2024-02-24 02:30 | PC.RT ---
At approximately 0050 RT attempted several times to request/collect sputum for AFB without success. PT is not able to follow instructions at this time. he is restrained, thrashing around in bed, unable to understand instructions. He is withdrawing from drug use. RN and another RT at doorway to witness attempt and confirm pt is unable. Drs made aware.
--- NOTE | 2024-02-24 05:32 | PC.NURSE ---
received patient around 2220 from [facility], transferred by primary RN, rodney MARIE, property maintenance supervisor with 3 security personnel. Patient is restless/agitated, trying to hit staff, getting out of bed and removing his gown, IV and cardiac monitors. Patient noted to be lethargic. Called MD Cano, she stated to start patient on CIWA protocol, can start patient on restraints, and not to give PO diazepam as pt is more lethargic. Approximately 2330, MD Gaytan and MD Cano at bedside assessing patient.
[2024-02-24 05:51] LABS: Basophils # (Auto) 0.1 Thou/mm3 (0.0-0.2); Basophils % (Auto) 0 % (0-2.5); Eosinophils % (Auto) 0 % (0-10); Hematocrit 31.6 % (41.0-53.0); Hemoglobin 10.4 g/dL (13.5-16.0); Immature Granulocytes % (Auto) 2 % (0-0); Immature Granulocytes Auto 0.27 Thou/mm3 (0.00-0.00); Lymphocytes # (Auto) 2.4 Thou/mm3 (1.0-4.8); Lymphocytes % (Auto) 15 % (10-50); Mean Corpuscular HGB Conc 32.9 g/dl (31.0-37.0); Mean Corpuscular Hemoglobin 29.7 pg (25.0-35.0); Mean Corpuscular Volume 90 fL (80-100); Monocytes # (Auto) 1.1 Thou/mm3 (0.0-0.8); Monocytes % (Auto) 7 % (0-12); Neutrophils # (Auto) 12.8 Thou/mm3 (1.8-7.7); Neutrophils % (Auto) 77 % (37-80); Nucleated Red Blood Cell % 0 /100 WBC (0); Platelet Count 453 Thou/mm3 (140-440); RDW Standard Deviation 44.7 fL (35.1-43.9); White Blood Count 16.7 Thou/mm3 (3.8-10.6)
[2024-02-24 06:21] LABS: Alanine Aminotransferase 37 U/L (10-49); Albumin, Serum 3.1 gm/dL (3.5-5.0); Albumin/Globulin Ratio 1.1 (1.2-2.2); Alkaline Phosphatase 497 U/L (46-116); Anion Gap 5 (7-16); Aspartate Amino Transferase 26 U/L (0-34); BUN/Creatinine Ratio 19 Ratio (12-20); Bilirubin,Total 1.2 mg/dL (0.3-1.2); Blood Urea Nitrogen 13 mg/dL (9-23); Calcium 8.8 mg/dL (8.3-10.6); Calcium (Corrected) 9.5 mg/dL (8.5-10.1); Carbon Dioxide 25.9 mMol/L (20.0-31.0); Chloride 107 mMol/L (98-107); Creatinine (Component) 0.7 mg/dL (0.6-1.3); Estimated Creatinine Clearance 124.1 mL/min (>60); Globulin 2.9 gm/dL (2.3-3.5); Glucose 105 mg/dL (74-106); Osmolality,Calculated 275 (275-295); Potassium 4.1 mMol/L (3.4-5.1); Sodium 138 mMol/L (136-145); eGFR > 60 See Note
[2024-02-24 07:20] LABS: Quantiferon-TB* See Sep Rpt
[2024-02-24 07:50] LABS: Magnesium 1.7 mg/dL (1.6-2.6); Phosphorous 2.9 mg/dL (2.4-5.1)
[2024-02-24] MEDS: AZITHROMYCIN 250 MG TABLET 500 MG PO (09:16)
[2024-02-24] MEDS: cefTRIAXone/D5w 1gm IV premix 50 ML IV (09:16)
--- NOTE | 2024-02-24 09:23 | PC.SS ---
Follow up note: Pt is in isolation for TB rule out. Pt is on IV antibiotic.
--- NOTE | 2024-02-24 09:56 | PC.RT ---
pt unable to complete afb, pt not oriented or able to follow commands.
--- NOTE | 2024-02-24 09:57 | ESPR_ITS ---
Subjective Subjective Interval history: hep c pending. hiv neg. here with pneumonia/hemoptysis and bacteremia. recent needle extraction noted. Exam Vital Signs Temp Pulse Resp BP Pulse Ox O2 Del Method 97.5 F 78 20 131/92 H 95 Room Air 02/24/24 08:00 02/24/24 09:54 02/24/24 09:54 02/24/24 08:00 02/24/24 09:54 02/24/24 08:00 Narrative Exam pt is encephalopathic today. may be experiencing withdrawl Objective - Internal Medicine Labs 02/26/24 06:50 02/25/24 05:12 Labs: Laboratory Results - last 24 hr 02/23/24 02/24/24 02/24/24 04:35 05:09 07:04 WBC 16.7 H RBC 3.50 L Hgb 10.4 L Hct 31.6 L MCV 90 MCH 29.7 MCHC 32.9 RDW Std Deviation 44.7 H Plt Count 453 H D Neut % (Auto) 77 Lymph % (Auto) 15 [place] % (Auto) 7 Eos % (Auto) 0 Baso % (Auto) 0 Neut # (Auto) 12.8 H Lymph # (Auto) 2.4 [place] # (Auto) 1.1 H Eos # (Auto) 0.0 Baso # (Auto) 0.1 Immature Gran # (Auto) 0.27 H Absolute Nucleated RBC 0.00 Immature Gran % 2 H Nucleated RBC % 0 Sodium 138 Potassium 4.1 D Chloride 107 Carbon Dioxide 25.9 Anion Gap 5 L BUN 13 Creatinine 0.7 Estim Creat Clear Calc 124.1 eGFR > 60 BUN/Creatinine Ratio 19 Glucose 105 Calculated Osmolality 275 Calcium 8.8 Corrected Calcium 9.5 Phosphorus 2.9 Magnesium 1.7 Iron 24 L TIBC 186 L Iron Saturation 12 L Unsat Iron Binding 162 L Total Bilirubin 1.2 AST 26 ALT 37 Alkaline Phosphatase 497 H D Total Protein 6.0 Albumin 3.1 L Globulin 2.9 Albumin/Globulin Ratio 1.1 L Coccidioides IgM Ab Negative HIV 1&2 Antibody Rapid Non-Reactive Assessment & Plan A&P Narrative cavitary pulm process, likely chronic idu hx, hep panel pending. hiv neg. await testing and course. can review and see again on sat Time Spent With Patient Time: Total time spent is greater than 50% in coordination of care (as documented) at patient's floor/unit and/or counseling patient:
--- NOTE | 2024-02-24 10:25 | CHAP ---
Patient was prayed for by the Spiritual Care Volunteer outside of room. Nurse was inside room.(Volunteer was in the hospital from 08:30-10:15).
[2024-02-24 10:32] LABS: Vancomycin,Trough 7.8 mcg/mL (5.0-10.0)
[2024-02-24] MEDS: VANCOMYCIN/NS 1 GM IVPB 200 ML IV ×2 (10:55→20:49)
--- NOTE | 2024-02-24 11:18 | ESCONSULT_ITS ---
<Statement entered by Timbo Sanchez MD - 02/26/24 08:50> pt seen with resident. not able to augment the hx due to condition. await studies and course HPI Data of Consult Requesting Physician: Reginaldo Mathur MD Admitting Provider: Slick Tyson MD Attending Provider: Reginaldo Mathur MD Primary Care Provider: Physician No Primary/Family Consult Narrative History of present illness: 43 year old male with history of iv drug use presents to the ER for subjective fever and chills. He was previously admitted at this hospital for a retained needle in the left arm from iv drug use that was subsequently removed by general surgery. In the ER, he was tachycardic and febrile, so sepsis alert was called. Labs significant for leukocytosis. Imaging showed cellulitis at the left eblow and CT scan of the chest showed extensive nodular opacities including a 20mm cavitary lesion in the left upper lobe. Patient was admitted for sepsis secondary to CAP versus cellulitis. Blood cultures grew GPC preliminary. He was treated empirically with vanc and zosyn. Patient evaluated but further information unobtainable as patient was encephalopathic from alcohol withdrawal. cc:: cc: Reginaldo Mathur MD Review of Systems Review of Systems ROS Unobtainable: unobtainable due to mental status Exam Vital Signs Temp Pulse Resp BP Pulse Ox O2 Del Method 97.5 F 78 20 131/92 H 95 Room Air 02/24/24 08:00 02/24/24 09:54 02/24/24 09:54 02/24/24 08:00 02/24/24 09:54 02/24/24 08:00 Narrative Exam Constitutional: appears older than stated age, encephalopathic HEENT: NCAT. Vision grossly intact. Mucous membranes very dry Respiratory: CTAB bilaterally. Cardiac: RRR. Abdomen: Soft, non-distended, non-tender. MSK: No B/L LE edema. Restrained upper limbs. Neuro: Grossly moving all 4 limbs. Results Labs 02/24/24 05:09 02/24/24 05:09 Labs: Short CBC 02/24/24 Range/Units 05:09 WBC 16.7 H (3.8-10.6) Thou/mm3 Hgb 10.4 L (13.5-16.0) g/dL Hct 31.6 L (41.0-53.0) % Plt Count 453 H D (140-440) Thou/mm3 BMP 02/24/24 05:09 Sodium 138 Potassium 4.1 D Chloride 107 Carbon Dioxide 25.9 BUN 13 Creatinine 0.7 Glucose 105 Calcium 8.8 Liver Function 02/24/24 Range/Units 05:09 Total Bilirubin 1.2 (0.3-1.2) mg/dL AST 26 (0-34) U/L ALT 37 (10-49) U/L Alkaline Phosphatase 497 H D (46-116) U/L Albumin 3.1 L (3.5-5.0) gm/dL Quality Measures Quality Measures none Medications Home Medications and Allergies Home Medications ?Medication ?Instructions ?Recorded ?Confirmed ?Type No Known Home Medications 02/23/24 02/23/24 History Allergies Allergy/AdvReac Type Severity Reaction Status Date / Time No Known Allergies Allergy Verified 02/22/24 21:47 Visit Medications Acetaminophen (Acetaminophen 325 Mg Tablet) 650 mg PO Q6HR PRN PRN Reason: Pain and Fever >101 Stop: 03/24/24 10:17 Albuterol/Ipratropium (Albuterol/Ipratropium (Duoneb) Rt Brittney 3 Ml Nebu) 3 ml INH Q6HRRT PRN PRN Reason: Shortness of Breath Stop: 03/24/24 06:59 Azithromycin (Azithromycin 250 Mg Tablet) 500 mg PO QDAY BARB Stop: 03/01/24 10:44 Last Admin: 02/24/24 09:16 Dose: 500 mg Diazepam (Diazepam 2 Mg Tablet) 2 mg PO QID PRN PRN Reason: ANXIETY Stop: 02/28/24 15:24 Last Admin: 02/23/24 16:12 Dose: 2 mg Dicyclomine HCl (Dicyclomine 10 Mg Capsule) 20 mg PO Q4HR PRN PRN Reason: CRAMPS Stop: 03/24/24 15:18 Ceftriaxone Sodium/Dextrose (Rocephin/D5w 1gm Iv Premix) 50 mls @ 100 mls/hr IV QDAY BARB Stop: 03/01/24 10:24 Last Admin: 02/24/24 09:16 Dose: 100 mls/hr Vancomycin/Sodium Chloride (Vancomycin/Ns 1 Gm Ivpb) 200 mls @ 120 mls/hr IV Q8HR BARB; Protocol Stop: 03/02/24 10:44 Last Admin: 02/24/24 10:55 Dose: 120 mls/hr Loperamide HCl (Loperamide 2 Mg Capsule) 2 mg PO Q6HR PRN PRN Reason: DIARRHEA Stop: 03/01/24 15:18 Lorazepam (Lorazepam 2 Mg/Ml Vial) 1 mg IV Q2HR PRN PRN Reason: CIWA SCORE 7-11 Stop: 02/28/24 22:22 Lorazepam (Lorazepam 2 Mg/Ml Vial) 2 mg IV Q2HR PRN PRN Reason: CIWA SCORE 12-15 Stop: 02/28/24 22:27 Last Admin: 02/24/24 09:44 Dose: 2 mg Lorazepam (Lorazepam 2 Mg/Ml Vial) 4 mg IV Q1HR PRN PRN Reason: CIWA 16-20 Stop: 02/28/24 22:27 Last Admin: 02/23/24 22:40 Dose: 4 mg Ondansetron HCl (Ondansetron Inj 2 Mg/Ml Inj 2 Ml) 4 mg IV Q6HR PRN PRN Reason: NAUSEA OR VOMITING Stop: 03/23/24 22:28 Pharmacy Consult (Pharmacy To Dose Vancomycin) 1 each IV QDAY PRN PRN Reason: CONSULT Stop: 03/24/24 14:59 Discontinued Medications Acetaminophen (Acetaminophen 325 Mg Tablet) 650 mg PO Q6H PRN PRN Reason: Mild Pain 1-3 or Fever >100.3 Stop: 03/24/24 02:56 Diazepam (Diazepam 2 Mg Tablet) 4 mg PO X1 ONE Stop: 02/23/24 21:52 Sodium Chloride (Ns) 1,914 mls @ 1,914 mls/hr 30 ml/kg infuse over 60 min (1914 ml) IV .Q1H ONE Stop: 02/22/24 23:28 Last Infusion: 02/23/24 00:32 Dose: Infused Ampicillin Sodium/Sulbactam (Sodium 3 gm/ Sodium Chloride) 100 mls @ 200 mls/hr IV X1 ONE Stop: 02/22/24 22:30 Last Infusion: 02/23/24 01:45 Dose: Infused Vancomycin/Sodium Chloride (Vancomycin/Ns 1 Gm Ivpb) 200 mls @ 120 mls/hr IV X1 ONE Stop: 02/23/24 00:08 Last Infusion: 02/23/24 03:28 Dose: Infused Piperacillin/Tazobactam/Dextrose (Zosyn) 3.375 gm in 50 mls @ 12.5 mls/hr IV Q8HR BARB Stop: 03/01/24 05:59 Last Admin: 02/23/24 06:24 Dose: 12.5 mls/hr Sodium Chloride (Ns) 1,000 mls @ 999 mls/hr IV .Q1H1M ONE Stop: 02/23/24 04:34 Last Infusion: 02/23/24 05:16 Dose: Infused Vancomycin/Sodium Chloride (Vancomycin/Ns 1 Gm Ivpb) 200 mls @ 120 mls/hr IV Q12H BARB; Protocol Stop: 03/01/24 09:59 Last Admin: 02/23/24 10:12 Dose: 120 mls/hr Azithromycin 500 mg/ Sodium (Chloride) 250 mls @ 250 mls/hr IV QDAY BARB Stop: 02/26/24 10:24 Vancomycin/Sodium Chloride (Vancomycin/Ns 1 Gm Ivpb) 200 mls @ 120 mls/hr IV Q12H BARB; Protocol Stop: 03/01/24 21:59 Last Admin: 02/23/24 22:41 Dose: 120 mls/hr Ketorolac Tromethamine (Ketorolac Inj 30 Mg/Ml Vial) 30 mg IVP X1 ONE Stop: 02/23/24 01:59 Last Admin: 02/23/24 02:06 Dose: 30 mg Ketorolac Tromethamine (Ketorolac Inj 30 Mg/Ml Vial) 30 mg IVP X1 ONE Stop: 02/23/24 10:19 Last Admin: 02/23/24 11:07 Dose: 30 mg Lorazepam (Lorazepam 2 Mg/Ml Vial) 2 mg IVP X1 ONE Stop: 02/23/24 19:20 Last Admin: 02/23/24 19:24 Dose: 2 mg Lorazepam (Lorazepam 2 Mg/Ml Vial) 2 mg IVP X1 ONE Stop: 02/23/24 20:14 Last Admin: 02/23/24 20:22 Dose: 2 mg Lorazepam (Lorazepam 2 Mg/Ml Vial) 2 mg IVP X1 ONE Stop: 02/23/24 21:11 Last Admin: 02/23/24 21:18 Dose: 2 mg Lorazepam (Lorazepam 2 Mg/Ml Vial) 0.5 mg IV Q2HR PRN PRN Reason: CIWA 3-6 Stop: 02/24/24 00:01 Lorazepam (Lorazepam 2 Mg/Ml Vial) 0.5 mg IV Q2HR PRN PRN Reason: CIWA 3-6 Stop: 02/24/24 00:01 Pharmacy Consult (Pharmacy To Dose Vancomycin) 1 each IV QDAY PRN PRN Reason: PROTOCOL Stop: 03/24/24 08:59 Potassium Phos/Sodium Phos ([facility] 1 Packet (1.5 Gm)) 1 packet PO X1 ONE Stop: 02/23/24 04:18 Last Admin: 02/23/24 06:24 Dose: 1 packet Sodium Chloride (Sodium Chloride Rt 10% 15 Ml Nebu) 5 ml INH X1 ONE Stop: 02/23/24 10:25 Last Admin: 02/23/24 23:05 Dose: Not Given Assessment & Plan Plan 43 year old male with history of iv drug use presents to the ER for subjective fever and chills admitted for sepsis secondary to gpc bacteremia, CAP and cellulitis #Sepsis secondary to cellulitis versus CAP #GPC bacteremia likely related to iv drug use - follow up hep panel, hiv - continue rocephin, azithromcyin abx; may consider broadening if concerned for mrsa - recheck bcx, consider echo for endocarditis #Bilateral pulmonary nodules Differential include septic emboli in the setting of gpc bacteremia, versus cocci, less likely TB unclear patient vocation - Treat underlying problems above - Follow up AFB, quantiferon - Follow up cocci #Acute alcohol withdrawal - per primary team I have reviewed and discussed the patient's care with my attending, Dr. Daniel Washington MD PGY-3 Infectious Disease Rotation
--- NOTE | 2024-02-24 12:34 | ESCONSULT_ITS ---
RE: BISHOP CAMEJO : 1980 DATE OF CONSULTATION: 02/24/2024 REFERRING PHYSICIAN: Slick Tyson MD REASON FOR CONSULTATION: Hemoptysis. HISTORY OF PRESENT ILLNESS: The patient has a history of idu and was admitted for hemoptysis. His workup is pending. PAST SURGICAL HISTORY: No scars. ALLERGIES: NO KNOWN ALLERGIES. IMMUNIZATIONS: Unavailable. FAMILY HISTORY: Noncontributory. SOCIAL HISTORY: Similarly noncontributory. PHYSICAL EXAMINATION: GENERAL: The patient does not require oxygen. He is in no distress, but he is clearly encephalopathic. He is not answering questions appropriately and about his teeth. HEENT: Grossly benign. HEART: Grossly benign LUNGS: Grossly benign. ABDOMEN: Grossly Benign. NEUROLOGIC: There is no meningismus. He has just unable to answer questions or interact in any meaningful way. ASSESSMENT: 1. Encephalopathy, probably withdrawal. 2. Injection drug use history, hepatitis C pending. HIV negative. 3. Hemoptysis. AFB is pending. PLAN: idu hx. I will check on him again on Saturday. DT: 11:06:10 TT: 11:39:00 Ref: [id number] - TID: [id number] MTDD
--- NOTE | 2024-02-24 14:47 | ESPR_ITS ---
<Statement entered by Tayler Mcduffie MD - 02/24/24 16:24> Patient was seen and examined at bedside. Overnight patient has multiple episodes of agitation in which she was put on CIWA protocol BiV night team. He was given more than 16 mg of lorazepam overnight and was put on restraints. Patient vitally stable with blood pressure of 139/62, pulse rate of 86, respiratory rate of 23, O2 saturation of 99 on room air. On evaluation today patient was found to be lethargic and sleepy for that reason we will hold the lorazepam at this time. You can resume if the patient continue to be agitated. Will get repeat blood culture as his blood culture grew GPC. Pending echo, TB results. - Patient's plan and care discussed with my attending, Dr. Kareen Mcduffie MD Internal Medicine PGY-2 Documentation for date of: 02/24/24 Subjective Subjective Interval history: Patient seen at bedside. Overnight the patient has received about 60 mg of lorazepam and 2 mg of diazepam. At bedside today, he is somnolent and difficult to arouse, patient is in restraints as he was agitated overnight. On labs, WBC did uptrending little to 16.7 today, still pending final results of blood culture cocci and AFB smears as well as QuantiFERON. Preliminary results of blood culture showed gram-positive cocci in 2 bottles. HIV nonreactive, hep B pending. Also pending echocardiogram. He was evaluated by ID Dr Sanchez today, recommends continue Rocephin and azithromycin as well as consider broadening if concern for MRSA, patient is on vancomycin. Will follow-up on pending cultures and imaging. Will also hold off on all benzos right now. Exam Vital Signs Temp Pulse Resp BP Pulse Ox O2 Del Method 97.5 F 69 18 150/96 H 96 Room Air 02/24/24 12:00 02/24/24 12:00 02/24/24 12:00 02/24/24 12:00 02/24/24 12:00 02/24/24 12:00 Narrative Exam GENERAL: Somnolent, difficult to arouse and in restraints NEURO: Somnolent, GCS-9, otherwise unable to assess HEENT: Moist mucosa. Eyes open to sound only CARDIO: No chest pain on palpation. Heart RRR, no obvious murmurs PULM: No noted coughing/dyspnea. Lungs CTA B/L GI: Abdomen soft, nondistended, no pain on palpation. BSx4 URO/CURATOR OF COLLECTIONS:: No further abnormalities noted. SKIN/MSK/EXT: Left elbow in the area of the lateral epicondyle has a laceration, with surrounding erythema but no drainage. Objective Labs 02/25/24 05:12 02/25/24 05:12 Labs: Laboratory Results - last 24 hr 02/23/24 02/24/24 02/24/24 04:35 05:09 07:04 WBC 16.7 H RBC 3.50 L Hgb 10.4 L Hct 31.6 L MCV 90 MCH 29.7 MCHC 32.9 RDW Std Deviation 44.7 H Plt Count 453 H D Neut % (Auto) 77 Lymph % (Auto) 15 Latimer % (Auto) 7 Eos % (Auto) 0 Baso % (Auto) 0 Neut # (Auto) 12.8 H Lymph # (Auto) 2.4 Latimer # (Auto) 1.1 H Eos # (Auto) 0.0 Baso # (Auto) 0.1 Immature Gran # (Auto) 0.27 H Absolute Nucleated RBC 0.00 Immature Gran % 2 H Nucleated RBC % 0 Sodium 138 Potassium 4.1 D Chloride 107 Carbon Dioxide 25.9 Anion Gap 5 L BUN 13 Creatinine 0.7 Estim Creat Clear Calc 124.1 eGFR > 60 BUN/Creatinine Ratio 19 Glucose 105 Calculated Osmolality 275 Calcium 8.8 Corrected Calcium 9.5 Phosphorus 2.9 Magnesium 1.7 Iron 24 L TIBC 186 L Iron Saturation 12 L Unsat Iron Binding 162 L Total Bilirubin 1.2 AST 26 ALT 37 Alkaline Phosphatase 497 H D Total Protein 6.0 Albumin 3.1 L Globulin 2.9 Albumin/Globulin Ratio 1.1 L Vancomycin Trough Coccidioides IgM Ab Negative 02/24/24 09:50 WBC RBC Hgb Hct MCV MCH MCHC RDW Std Deviation Plt Count Neut % (Auto) Lymph % (Auto) Latimer % (Auto) Eos % (Auto) Baso % (Auto) Neut # (Auto) Lymph # (Auto) Latimer # (Auto) Eos # (Auto) Baso # (Auto) Immature Gran # (Auto) Absolute Nucleated RBC Immature Gran % Nucleated RBC % Sodium Potassium Chloride Carbon Dioxide Anion Gap BUN Creatinine Estim Creat Clear Calc eGFR BUN/Creatinine Ratio Glucose Calculated Osmolality Calcium Corrected Calcium Phosphorus Magnesium Iron TIBC Iron Saturation Unsat Iron Binding Total Bilirubin AST ALT Alkaline Phosphatase Total Protein Albumin Globulin Albumin/Globulin Ratio Vancomycin Trough 7.8 Coccidioides IgM Ab Quality Measures Quality Measures none Assessment & Plan Assessment Current Active Medications: Generic Name Dose Route Start Last Admin Trade Name Freq PRN Reason Stop Dose Admin Acetaminophen 650 mg 02/23/24 10:18 Acetaminophen 325 Mg Tablet PO 03/24/24 10:17 Q6HR PRN Pain and Fever >101 Albuterol/Ipratropium 3 ml 02/23/24 04:13 Albuterol/Ipratropium (Duoneb) Rt Brittney 3 Ml Nebu INH 03/24/24 06:59 Q6HRRT PRN Shortness of Breath Azithromycin 500 mg 02/23/24 10:45 02/24/24 09:16 Azithromycin 250 Mg Tablet PO 03/01/24 10:44 500 mg QDAY BARB Administration Diazepam 2 mg 02/23/24 15:25 02/23/24 16:12 Diazepam 2 Mg Tablet PO 02/28/24 15:24 2 mg QID PRN Administration ANXIETY Dicyclomine HCl 20 mg 02/23/24 15:19 Dicyclomine 10 Mg Capsule PO 03/24/24 15:18 Q4HR PRN CRAMPS Ceftriaxone Sodium/Dextrose 50 mls @ 100 mls/hr 02/23/24 10:25 02/24/24 09:16 Rocephin/D5w 1gm Iv Premix IV 03/01/24 10:24 100 mls/hr QDAY BARB Administration Vancomycin/Sodium Chloride 200 mls @ 120 mls/hr 02/24/24 10:45 02/24/24 10:55 Vancomycin/Ns 1 Gm Ivpb IV 03/02/24 10:44 120 mls/hr Q8HR BARB Administration Protocol Loperamide HCl 2 mg 02/23/24 15:19 Loperamide 2 Mg Capsule PO 03/01/24 15:18 Q6HR PRN DIARRHEA Lorazepam 1 mg 02/23/24 22:23 Lorazepam 2 Mg/Ml Vial IV 02/28/24 22:22 Q2HR PRN CIWA SCORE 7-11 Lorazepam 2 mg 02/23/24 22:28 02/24/24 09:44 Lorazepam 2 Mg/Ml Vial IV 02/28/24 22:27 2 mg Q2HR PRN Administration CIWA SCORE 12-15 Lorazepam 4 mg 02/23/24 22:28 02/23/24 22:40 Lorazepam 2 Mg/Ml Vial IV 02/28/24 22:27 4 mg Q1HR PRN Administration [facility] 16-20 Ondansetron HCl 4 mg 02/22/24 22:29 Ondansetron Inj 2 Mg/Ml Inj 2 Ml IV 03/23/24 22:28 Q6HR PRN NAUSEA OR VOMITING Pharmacy Consult 1 each 02/23/24 15:00 Pharmacy To Dose Vancomycin IV 03/24/24 14:59 QDAY PRN CONSULT Plan Summary: The patient is a 43-year-old male with a past medical history of substance use disorder who presented to the ED with subjective fevers, chills, cough with occasional hemoptysis and was admitted on 02/23/2024 for sepsis secondary to community-acquired pneumonia. #Sepsis secondary to community-acquired pneumonia #?Tuberculosis #Cocci rule out #Septic emboli rule out The patient presented with subjective fevers and chills, pleuritic chest pain, cough with occasional hemoptysis. In the ED, the patient met 4/4 SIRS criteria with a WBC of 16.2 and lactic acid of 3.0, elevated CRP. Chest x-ray showed bilateral pneumonia. The patient was started on IV Zosyn and vancomycin. On further review today, the patient does endorse weight loss and night sweats, will work him up for possibility of tuberculosis. Chest CT done showed multiple cavitary lesions and pulmonary nodules- differential diagnosis septic emboli, TB, cocci 02/16/2024-WBC up trended to 16.7 today, pending blood cultures cocci and AFB as well as QuantiFERON result. Preliminary results of blood culture showed gram- positive cocci in 2 bottles. Echocardiogram taken, pending results. Plan: -Continue IV antibiotics ceftriaxone azithromycin and vancomycin -Pending cocci -QuantiFERON, AFB cultures pending -Pending echocardiogram read -Isolation precautions #History of substance abuse #Meth and heroin abuse #Opiate withdrawal Patient was seen to be agitated, changes with and confused, possibly opiate withdrawal. He was started on CIWA protocol and overnight received 2 mg of diazepam and 60 mg of lorazepam. Patient at bedside today was somnolent and difficult to arouse. Plan: -Will discontinue all benzodiazepines for now -Supportive management only #Hyponatremia-resolved On admission, the patient's sodium level was 128. Today, sodium is 139. Health maintenance: Dispo: MedSurg Diet: Regular diet GI: Pantoprazole DVT: SCDs Code: Full Case was discussed with senior resident Dr Mcduffie PGY-2 and attending physician, Dr Kareen Wren MD PGY-1 Attending Provider Attestation/Addendum I have examined the patient, reviewed labs and imaging findings, discussed the case with the resident(s), and reviewed entered orders. I agree with the plan of care as outlined in this note, with these additional summaries/recommendations: Patient seen at bedside. Overnight patient was significantly agitated and received multiple doses of IV lorazepam. Agitation likely secondary to opiate/fentanyl withdrawal. Unclear alcohol history at this time. Patient noted to be somnolent this morning and not following directions. We will DC benzodiazepines and monitor for improvement. Patient on IV antibiotics for community-acquired pneumonia. CT of chest was obtained which showed extensive nodular soft opacities throughout the lungs including 20 mm cavitary lesion in left upper lobe with a differential including infectious versus fungal versus septic emboli versus pulmonary nodular metastatic disease. TB workup ordered and we will follow-up results when available. Cocci IgM negative and IgG pending. Infectious disease consulted. Patient also found to have blood cultures positive for GPC and on vancomycin. We will wait for final culture results. Of note patient recently had retained needle in the left elbow from IV drug abuse and was removed via general surgery on 02/06/2024. Leukocytosis persist and we will continue to monitor. Patient had mildly elevated LFTs on admission and abdominal ultrasound was obtained which was relatively inconclusive although patient has a benign abdominal exam at this time. Repeat hematology and chemistry panel in AM. Dr. Mathur
[2024-02-24 18:05] LABS: Hepatitis A Antibody IgM Non Reactive (Non React); Hepatitis B Core Antibody IgM Non Reactive (Non React); Hepatitis B Surface Antigen Non Reactive (Non React); Hepatitis C Antibody Non Reactive (Non React)
[2024-02-25] VITALS (9 sets, daily range): BP systolic 122–159; BP diastolic 68–99; PULSE 59–92; RESP 16–96; TEMP 36.6–37.2; O2SAT 93–99
--- NOTE | 2024-02-25 02:23 | PC.RT ---
RT went to room multiple times to attempt to collect AFB, pt is still unable to do so due to pt not able to follow instructions at this time. he is restrained, thrashing around in bed, unable to understand instructions. He is withdrawing from drug use. Drs made aware
[2024-02-25] MEDS: VANCOMYCIN/NS 1 GM IVPB 200 ML IV (05:07)
[2024-02-25 06:19] LABS: Basophils # (Auto) 0.1 Thou/mm3 (0.0-0.2); Basophils % (Auto) 1 % (0-2.5); Eosinophils # (Auto) 0.1 Thou/mm3 (0.0-0.5); Eosinophils % (Auto) 0 % (0-10); Hematocrit 32.4 % (41.0-53.0); Hemoglobin 10.9 g/dL (13.5-16.0); Immature Granulocytes % (Auto) 2 % (0-0); Immature Granulocytes Auto 0.25 Thou/mm3 (0.00-0.00); Lymphocytes # (Auto) 2.7 Thou/mm3 (1.0-4.8); Lymphocytes % (Auto) 16 % (10-50); Mean Corpuscular HGB Conc 33.6 g/dl (31.0-37.0); Mean Corpuscular Hemoglobin 29.7 pg (25.0-35.0); Mean Corpuscular Volume 88 fL (80-100); Monocytes # (Auto) 1.2 Thou/mm3 (0.0-0.8); Monocytes % (Auto) 7 % (0-12); Neutrophils # (Auto) 12.9 Thou/mm3 (1.8-7.7); Neutrophils % (Auto) 75 % (37-80); Nucleated Red Blood Cell % 0 /100 WBC (0); Platelet Count 489 Thou/mm3 (140-440); RDW Standard Deviation 43.9 fL (35.1-43.9); Red Blood Count 3.67 Miln/mm3 (4.50-5.90); White Blood Count 17.2 Thou/mm3 (3.8-10.6)
[2024-02-25 06:35] LABS: Alanine Aminotransferase 41 U/L (10-49); Alkaline Phosphatase 423 U/L (46-116); Anion Gap 9 (7-16); Aspartate Amino Transferase 29 U/L (0-34); BUN/Creatinine Ratio 24 Ratio (12-20); Bilirubin,Total 1.4 mg/dL (0.3-1.2); Blood Urea Nitrogen 19 mg/dL (9-23); Calcium 8.5 mg/dL (8.3-10.6); Calcium (Corrected) 9.3 mg/dL (8.5-10.1); Carbon Dioxide 21.3 mMol/L (20.0-31.0); Chloride 107 mMol/L (98-107); Creatinine (Component) 0.8 mg/dL (0.6-1.3); Estimated Creatinine Clearance 108.5 mL/min (>60); Glucose 97 mg/dL (74-106); Magnesium 1.7 mg/dL (1.6-2.6); Osmolality,Calculated 276 (275-295); Phosphorous 3.8 mg/dL (2.4-5.1); Potassium 4.3 mMol/L (3.4-5.1); Sodium 137 mMol/L (136-145); eGFR > 60 See Note
[2024-02-25 08:49] LABS: Cocci Serology, IgG Negative (Negative)
[2024-02-25] MEDS: cefTRIAXone/D5w 1gm IV premix 50 ML IV (09:08)
[2024-02-25] MEDS: AZITHROMYCIN 250 MG TABLET 500 MG PO (09:08)
--- NOTE | 2024-02-25 09:09 | PC.RT ---
UNABLE TO COLLECT AFB DUE TO PT ABILITY TO FOLLOW DIRECTIONS APPROPRIATELY
--- NOTE | 2024-02-25 09:46 | PCS.ST ---
Order received. Swallow Evaluation is not warranted as pt is tolerating regular diet/liquids without difficulty.
[2024-02-25] MEDS: Magnesium Sulfate 2 GM Ivpb 2 GM/50 ML BAG IV (09:56)
[2024-02-25] MEDS: LORazepam 2 MG/ML VIAL 0.5 MG IV (11:39)
[2024-02-25] MEDS: PIPER/TAZO 3.375 GM 3.375 GM/50 ML BAG IV ×2 (11:40→21:37)
[2024-02-25 13:50] LABS: Vancomycin,Trough 4.6 mcg/mL (5.0-10.0)
[2024-02-25] MEDS: VANCOMYCIN/D5W 1,250 MG IVPB 250 ML 120 MG IV ×2 (14:34→21:37)
--- NOTE | 2024-02-25 14:35 | ESPR_ITS ---
<Statement entered by Seth Beckett MD - 02/25/24 15:24> Patient was seen and examined at the bedside. Patient appears to be AOx3 and was asking regarding his pneumonia whether it is improving or not. Patient was eating his lunch. Patient was given IV Ativan 0.5 mg x 1 for mild withdrawal symptoms. Antibiotics were escalated to Zosyn and ceftriaxone and azithromycin discontinued. Continuing vancomycin for now. Initial/first blood cultures growing Staph aureus MSSA and recent blood cultures are negative so far. Echocardiogram showed no vegetations. EF 60-65%. WBCs continues to be uptrending. Cocci serology negative. Pending AFB and ID specialist recommendations. Will currently hold diazepam and CIWA protocol given patient's withdrawal symptoms are under control. All labs and orders were reviewed. I saw and examined the patient, and I agree with current management stated by Dr Siena MD,PGY1. Plan of care was discussed with the attending physician and resident physician. Disclaimer: Despite multiple revisions, due to the dictation software being used, the document bellow may not be free of grammatical errors including phonetic/typographic errors. However, this does not deter from our commitment to providing health care in the patient's best interest in mind. Dr. Sujit MD, PGY 2 Documentation for date of: 02/25/24 Subjective Subjective Interval history: Patient seen at bedside today. No acute overnight events. Patient was taken off CIWA protocol yesterday and all benzodiazepines were put on hold as he was obtunded during examination yesterday. At bedside today, patient seems to be back at baseline, he is AAOx3 and asking about his diagnosis and prognosis, has no new complaints. Still pending results of AFB and quant. As GPC bacteria was positive in previous blood culture, we have ordered new set of blood cultures. Right now, preliminary is negative. Echocardiogram done-no evidence of valvular vegetation, normal LV size and function with EF 60 to 65%. WBC was seen to be uptrending still, 17.2 today. Will escalate antibiotics back to IV Zosyn and continue vancomycin. Exam Vital Signs Temp Pulse Resp BP Pulse Ox O2 Del Method 97.8 F 70 20 122/86 H 99 Room Air 02/25/24 12:00 02/25/24 12:00 02/25/24 12:00 02/25/24 12:00 02/25/24 12:00 02/25/24 12:00 Narrative Exam GENERAL: AAOX3, off restraints NEURO: GCS- 15, BACK WINDER grossly intact. HEENT: Moist mucosa. Eyes open to sound only CARDIO: No chest pain on palpation. Heart RRR, no obvious murmurs PULM: No noted coughing/dyspnea. Lungs CTA B/L GI: Abdomen soft, nondistended, no pain on palpation. BSx4 URO/CORPORATE ASSOCIATE ATTORNEY:: No further abnormalities noted. SKIN/MSK/EXT: Left elbow in the area of the lateral epicondyle has a laceration, with surrounding erythema but no drainage. Objective Labs 02/25/24 05:12 02/25/24 05:12 Labs: Laboratory Results - last 24 hr 02/23/24 02/25/24 02/25/24 04:35 05:12 13:10 WBC 17.2 H RBC 3.67 L Hgb 10.9 L Hct 32.4 L MCV 88 MCH 29.7 MCHC 33.6 RDW Std Deviation 43.9 Plt Count 489 H D Neut % (Auto) 75 Lymph % (Auto) 16 [place] % (Auto) 7 Eos % (Auto) 0 Baso % (Auto) 1 Neut # (Auto) 12.9 H Lymph # (Auto) 2.7 [place] # (Auto) 1.2 H Eos # (Auto) 0.1 Baso # (Auto) 0.1 Immature Gran # (Auto) 0.25 H Absolute Nucleated RBC 0.00 Immature Gran % 2 H Nucleated RBC % 0 Sodium 137 Potassium 4.3 Chloride 107 Carbon Dioxide 21.3 Anion Gap 9 BUN 19 Creatinine 0.8 Estim Creat Clear Calc 108.5 eGFR > 60 BUN/Creatinine Ratio 24 H Glucose 97 Calculated Osmolality 276 Calcium 8.5 Corrected Calcium 9.3 Phosphorus 3.8 Magnesium 1.7 Total Bilirubin 1.4 H AST 29 ALT 41 Alkaline Phosphatase 423 H D Total Protein 6.0 Albumin 3.0 L Globulin 3.0 Albumin/Globulin Ratio 1.0 L Vancomycin Trough 4.6 L Coccidioides IgG Ab Negative Hepatitis A IgM Ab Non Reactive Hep Bs Antigen Non Reactive Hep B Core IgM Ab Non Reactive Hepatitis C Antibody Non Reactive Quality Measures Quality Measures none Assessment & Plan Assessment Current Active Medications: Generic Name Dose Route Start Last Admin Trade Name Freq PRN Reason Stop Dose Admin Acetaminophen 650 mg 10/27/24 10:18 Acetaminophen 325 Mg Tablet PO 03/24/24 10:17 Q6HR PRN Pain and Fever >101 Albuterol/Ipratropium 3 ml 02/23/24 04:13 Albuterol/Ipratropium (Duoneb) Rt Brittney 3 Ml Nebu INH 03/24/24 06:59 Q6HRRT PRN Shortness of Breath Clonidine 0.1 mg 02/24/24 16:18 Clonidine Hcl 0.1 Mg Tablet PO 03/25/24 16:17 QDAY PRN SBP>160 Diazepam 2 mg 02/23/24 15:25 02/23/24 16:12 Diazepam 2 Mg Tablet PO 02/28/24 15:24 2 mg QID PRN Administration ANXIETY Dicyclomine HCl 20 mg 02/23/24 15:19 Dicyclomine 10 Mg Capsule PO 03/24/24 15:18 Q4HR PRN CRAMPS Piperacillin/Tazobactam/Dextrose 3.375 gm in 50 mls @ 12.5 mls/hr 02/25/24 22:00 Zosyn IV 03/03/24 21:59 Q8HR BARB Protocol Vancomycin HCl/Dextrose 250 mls @ 120 mls/hr 02/25/24 14:15 02/25/24 14:34 Vancomycin/D5w 1,250 Mg Ivpb IV 03/03/24 14:14 120 mls/hr Q8HR BARB Administration Protocol Loperamide HCl 2 mg 02/23/24 15:19 Loperamide 2 Mg Capsule PO 03/01/24 15:18 Q6HR PRN DIARRHEA Lorazepam 1 mg 02/23/24 22:23 Lorazepam 2 Mg/Ml Vial IV 02/28/24 22:22 Q2HR PRN CIWA SCORE 7-11 Lorazepam 2 mg 02/23/24 22:28 02/24/24 09:44 Lorazepam 2 Mg/Ml Vial IV 02/28/24 22:27 2 mg Q2HR PRN Administration CIWA SCORE 12-15 Lorazepam 4 mg 02/23/24 22:28 02/23/24 22:40 Lorazepam 2 Mg/Ml Vial IV 02/28/24 22:27 4 mg Q1HR PRN Administration CIWA 16-20 Ondansetron HCl 4 mg 02/22/24 22:29 Ondansetron Inj 2 Mg/Ml Inj 2 Ml IV 03/23/24 22:28 Q6HR PRN NAUSEA OR VOMITING Pharmacy Consult 1 each 02/23/24 15:00 Pharmacy To Dose Vancomycin IV 03/24/24 14:59 QDAY PRN CONSULT Plan Summary: The patient is a 43-year-old male with a past medical history of substance use disorder who presented to the ED with subjective fevers, chills, cough with occasional hemoptysis and was admitted on 02/23/2024 for sepsis secondary to community-acquired pneumonia. #Sepsis secondary to community-acquired pneumonia #?Tuberculosis #Cocci rule out #Septic emboli rule out The patient presented with subjective fevers and chills, pleuritic chest pain, cough with occasional hemoptysis. In the ED, the patient met 4/4 SIRS criteria with a WBC of 16.2 and lactic acid of 3.0, elevated CRP. Chest x-ray showed bilateral pneumonia. The patient was started on IV Zosyn and vancomycin. On further review today, the patient does endorse weight loss and night sweats, will work him up for possibility of tuberculosis. Chest CT done showed multiple cavitary lesions and pulmonary nodules- differential diagnosis septic emboli, TB, cocci 02/25/2024- Still pending results of AFB and quant. As GPC bacteria was positive in previous blood culture, we have ordered new set of blood cultures. Right now, preliminary is negative. Echocardiogram done-no evidence of valvular vegetation, normal LV size and function with EF 60 to 65%. WBC was seen to be uptrending still, 17.2 today. Will escalate antibiotics back to IV Zosyn and continue vancomycin. Plan: -DC IV ceftriaxone and azithromycin -Commence IV Zosyn and continue with IV vancomycin -QuantiFERON, AFB cultures pending -Isolation precautions #History of substance abuse #Meth and heroin abuse #Opiate withdrawal Patient was seen to be agitated, changes with and confused, possibly opiate withdrawal. He was started on CIWA protocol and overnight received 2 mg of diazepam and 60 mg of lorazepam. Patient at bedside today was somnolent and difficult to arouse. 02/25/2024- Patient doing better today, off restraints. Still requiring a little bit of Ativan for agitation. Clonidine 0.1 on board for SBP> 160 Plan: -IV Ativan 0.5 mg as needed for agitation -Supportive management only #Hyponatremia-resolved On admission, the patient's sodium level was 128. Today, sodium is 137. Health maintenance: Dispo: MedSurg Diet: Regular diet GI: Pantoprazole DVT: SCDs Code: Full Case was discussed with senior resident Dr Beckett PGY-2 and attending physician, Dr Kareen Wren MD PGY-1 Attending Provider Attestation/Addendum I have examined the patient, reviewed labs and imaging findings, discussed the case with the resident(s), and reviewed entered orders. I agree with the plan of care as outlined in this note, with these additional summaries/recommendations: Patient seen at bedside. Patients mentation is much improved today after discontinuing CIWA for opiate/fentanyl withdrawal. Patient denies alcohol use. Patient endorses significant withdrawal symptoms today and we will give low dose Ativan as needed but advised patient will be cautious given his somnolence yesterday. Patient is alert and oriented x 3 today. We will discontinue bilateral soft wrist restraints as patient is following instructions. Counseled on substance abuse. Continue IV antibiotics for community-acquired pneumonia. CT of chest was obtained which showed extensive nodular soft opacities throughout the lungs including 20 mm cavitary lesion in left upper lobe with a differential including infectious versus fungal versus septic emboli versus pulmonary nodular metastatic disease. TB workup ordered and we will follow-up results when available. Cocci IgM negative and IgG pending. Infectious disease consulted. Patient also found to have blood cultures positive for GPC and on vancomycin. We will wait for final culture results. Of note patient recently had retained needle in the left elbow from IV drug abuse and was removed via general surgery on 02/06/2024. Leukocytosis worsened and DC Rocephine/Azithro and start IV zosyn. Patient had mildly elevated LFTs on admission and abdominal ultrasound was obtained which was relatively inconclusive although patient has a benign abdominal exam at this time. Acute hepatitis panel negative. Repeat hematology and chemistry panel in AM. Dr. Mathur
[2024-02-25] MEDS: LORazepam 2 MG/ML VIAL 0.5 MG IVP (17:08)
--- NOTE | 2024-02-25 21:40 | PC.NURSE ---
Per Anup, okay to limit interractions with paitne. She is okay with q6 vitals.
[2024-02-26] VITALS: BP 133/62; PULSE 70; PULSE 85; RESP 19; TEMP 36.9; O2SAT 93
[2024-02-26] MEDS: LORazepam 2 MG/ML VIAL 0.5 MG IVP (03:50)
[2024-02-26 04:00] VITALS: BP 125/81; PULSE 79; RESP 19; TEMP 37.1; O2SAT 96
[2024-02-26] MEDS: MELATONIN 3 MG TABLET PO (05:53)
[2024-02-26] MEDS: PIPER/TAZO 3.375 GM 3.375 GM/50 ML BAG IV (05:54)
[2024-02-26] MEDS: VANCOMYCIN/D5W 1,250 MG IVPB 250 ML 120 MG IV (05:59)
[2024-02-26 06:30] VITALS: PULSE 79; RESP 20; RESP 96; O2SAT 96
[2024-02-26 07:44] VITALS: BP 135/82; PULSE 78; RESP 18; TEMP 36.3; O2SAT 96
[2024-02-26 07:51] LABS: Basophils # (Auto) 0.1 Thou/mm3 (0.0-0.2); Basophils % (Auto) 0 % (0-2.5); Eosinophils # (Auto) 0.1 Thou/mm3 (0.0-0.5); Eosinophils % (Auto) 1 % (0-10); Hematocrit 29.9 % (41.0-53.0); Hemoglobin 10.1 g/dL (13.5-16.0); Immature Granulocytes % (Auto) 1 % (0-0); Immature Granulocytes Auto 0.22 Thou/mm3 (0.00-0.00); Lymphocytes % (Auto) 16 % (10-50); Mean Corpuscular HGB Conc 33.8 g/dl (31.0-37.0); Mean Corpuscular Hemoglobin 29.8 pg (25.0-35.0); Mean Corpuscular Volume 88 fL (80-100); Monocytes # (Auto) 1.1 Thou/mm3 (0.0-0.8); Monocytes % (Auto) 6 % (0-12); Neutrophils % (Auto) 76 % (37-80); Nucleated Red Blood Cell % 0 /100 WBC (0); Platelet Count 520 Thou/mm3 (140-440); RDW Standard Deviation 44.1 fL (35.1-43.9); Red Blood Count 3.39 Miln/mm3 (4.50-5.90); White Blood Count 18.4 Thou/mm3 (3.8-10.6)
[2024-02-26] MEDS: LORazepam 2 MG/ML VIAL 1 MG IVP (08:01)
--- NOTE | 2024-02-26 08:12 | PC.NURSE ---
pt was agitated this morning, sitting up, telemonitor and gown off, cussing, yelling, wants to leave, I called the hospitalist to let him know and received an order for ativan, at the time I gave the ativan pt had calmed down and was ready to eat breakfast
[2024-02-26 09:16] LABS: Alanine Aminotransferase 41 U/L (10-49); Albumin, Serum 2.9 gm/dL (3.5-5.0); Alkaline Phosphatase 326 U/L (46-116); Anion Gap 5 (7-16); Aspartate Amino Transferase 32 U/L (0-34); BUN/Creatinine Ratio 20 Ratio (12-20); Bilirubin,Total 0.9 mg/dL (0.3-1.2); Blood Urea Nitrogen 18 mg/dL (9-23); Calcium 8.1 mg/dL (8.3-10.6); Carbon Dioxide 22.7 mMol/L (20.0-31.0); Chloride 104 mMol/L (98-107); Creatinine (Component) 0.9 mg/dL (0.6-1.3); Estimated Creatinine Clearance 96.5 mL/min (>60); Globulin 2.8 gm/dL (2.3-3.5); Glucose 146 mg/dL (74-106); Magnesium 1.8 mg/dL (1.6-2.6); Osmolality,Calculated 269 (275-295); Phosphorous 3.5 mg/dL (2.4-5.1); Potassium 4.1 mMol/L (3.4-5.1); Sodium 132 mMol/L (136-145); Total Protein 5.7 gm/dL (5.7-8.2); eGFR > 60 See Note
--- NOTE | 2024-02-26 10:39 | CHAP ---
Patient was visited by a Spiritual Care Volunteer on 02/26/2024 between 0900 and 1010 and received comfort, encouragement and/or prayer.
--- NOTE | 2024-02-26 10:39 | PC.SS ---
Rounding: Pt R/O TB, pending ID reccs
[2024-02-26 11:00] VITALS: BMI 24.9
--- NOTE | 2024-02-26 13:51 | ESDS_ITS ---
<Statement entered by Seth Beckett MD - 02/26/24 14:28> Patient was seen and examined at the bedside. Patient was requesting to leave the hospital and see his doctor. He was explained that he still needs some further testing and 2 AFB results are pending. Repeat blood cultures negative in 24 hours. Initial blood cultures were GPC. Transthoracic echocardiogram showed no vegetations. First AFB came negative. We gave him additional ceftriaxone 1 g x 1 and escalated dose of ceftriaxone to 2 g once a day. Plan was once AFBs 3 out of 3 cultures negative we will perform ISABEL after consulting cardiology. However, patient wanted to leave AMA although he was explained that this would be AGAINST MEDICAL ADVICE and not recommended given patient's repeat blood cultures are still pending and we are treating infection with antibiotics patient refused to stay and left against advice. Patient was given advice that he should stay and should not risk his life by leaving hospital. Internal medicine team had am extensive conversation with the patient and explained to him the consequences of leaving without having the results back or following up with the ISABEL as well as the risk of of stroke as well as outside of the hospital without complete treatment.Patient insisted on leaving and signed the AMA form. I saw and examined the patient, and I agree with current management stated by Dr Siena MD,PGY1. Plan of care was discussed with the attending physician and resident physician. Disclaimer: Despite multiple revisions, due to the dictation software being used, the document bellow may not be free of grammatical errors including phonetic/typographic errors. However, this does not deter from our commitment to providing health care in the patient's best interest in mind. Dr. Len MD, PGY 2 Planned Discharge Date 02/26/24 DS: Providers Provider Date of admission: 02/23/24 02:58 Primary care physician: Physician No Primary/Family Admitting Provider: Slick Tyson MD Attending Provider on Admission: Reginaldo Mathur MD Consults: 02/23/24 14:51 Consult to Infectious Diseases Routine Comment: Consulting Provider: Timbo Sanchez Attending Provider on DC: Ángel Abernathy MD Discharging Provider: Ángel Abernathy MD DS: Diagnosis Problem List Completed Was Problem List Reviewed/Reconciled?: Yes Hospital Course Hospital Course Hospital course: The patient is a 43-year-old male with a history of substance abuse (meth and heroin) who presented to the ED on 02/23/2024 with subjective fevers, chills, cough with occasional hemoptysis (streaks of blood). He and presentation, he was febrile with a temperature of 102.2, tachycardic, tachypneic with WBC 16.2. Chest x-ray showed bilateral pneumonia with bilateral multiple pulmonary nodules and patient was started on IV Zosyn and vancomycin, admitted for management of sepsis secondary to pneumonia. Zosyn was de-escalated to ceftriaxone, but restarted after WBC was uptrending. A chest CT to evaluate was done pulmonary nodules and showed extensive soft opacities throughout the lungs including cavitary lesions with septic emboli being on the differential. Upon further investigation, the patient endorsed a 20 pound weight loss in the last month with associated night sweats. Blood cultures, cocci, QuantiFERON and AFB was sent out and the patient was placed on isolation precautions. An echocardiogram was also ordered to investigate possibility of infective endocarditis taking into consideration IV drug use and sepsis. In the evening of the day of admission, patient started to experience withdrawal symptoms with agitation and extreme sweating. He was initially started on CIWA protocol and received up to 16 mg of Ativan and consequently became obtunded and difficult to arouse. All benzodiazepines were then put on hold and patient was put on restraints. Blood culture returned positive for GPC- Staph aureus sensitive to ceftriaxone. IV ceftriaxone was restarted. One of the A FB returned negative, pending the other 2. Based on patient's presentation, chest CT results from earlier considering to do a ISABEL after a very confirmed negative to rule out septic endocarditis given the high clinical suspicion and continue antibiotics for the full 2-week course. Repeat blood culture came back negative after 24 hours. Today, 02/26/2024, patient insisted that he wanted to be discharged or leave AMA as he wanted to check in on his family. Internal medicine team had am extensive conversation with the patient and explained to him the consequences of leaving without having the results back or following up with the ISABEL as well as the risk of of stroke as well as outside of the hospital without complete treatment. Patient insisted on leaving and signed the AMA form. #Sepsis secondary to community-acquired pneumonia #Possible infective endocarditis #Opioid withdrawal #History of substance abuse Case was discussed with senior resident Dr Beckett PGY-2 and attending physician, Dr Michela Wren MD PGY-1 Time Spent with Patient Time attestation: Total time spent providing and/or coordinating discharge services:more than 30minutes Exam Vital Signs Temp Pulse Resp BP Pulse Ox O2 Del Method 97.3 F 78 18 135/82 H 96 Room Air 02/26/24 07:44 02/26/24 07:44 02/26/24 07:44 02/26/24 07:44 02/26/24 07:44 02/26/24 07:44 Narrative Exam GENERAL: AAOX3 NEURO: SHEET SEWER grossly intact, moves extremities x4 HEENT: Moist mucosa. Eyes open, symmetrical, & clear CARDIO: No chest pain on palpation. Heart RRR, no obvious murmurs PULM: No noted coughing/dyspnea. Lungs CTA B/ GI: Abdomen soft, nondistended, no pain on palpation. BSx4 URO/INSPECTOR BALANCE BRIDGE:: No further abnormalities noted. SKIN/MSK/EXT: No wounds/rashes/edema/amputations, no pain on palpation. Pedal pulses present B/L Discharge Plan Plan Patient Disposition: Left Against Medical Advice Patient condition on transfer: Stable Prescriptions/Referrals Prescriptions/Med Rec: New cephalexin 500 mg capsule 1,000 mg PO TID 10 Days Qty: 60 0RF Patient/Caregiver Discharge Instructions Print Language: Spanish Quality Discharge Quality Measures VTE prophylaxis MD Attestestation MD Attestation Face to face evaluation was performed by me. I have personally seen and examined the patient. I discussed the assessment and plan with the entire medicine team. I reviewed available medical records, imaging studies, laboratory results. I agree with the above subjective data, objective findings, assessment and plan except as corrected by me or noted below Sepsis, poa due to gram positive bacteremia IV drug abuse Gram positive bacteremia - plan was to continue with IV Abxms await ID recommendations, patient decided to leave against medical advice, depsite our conversation and explaining him how serious bacteremia can be including severe sepsis and from it. Team sent PO keflex for another 10 days to complete 2 weeks course for him. So far negative TB gold quantiferon and one AFB negative as well Patient to follwo up with PCP
== END 2024-02-26 11:25 | disposition left against medical advice (07) | DRG 720 ==
LOC: SERX 02-23 02:53 → SERHOLD 02-23 03:15 → S3SX 02-23 07:52 → S2NX 02-23 22:15 → S3SX 02-26 03:28
PROVIDERS: Student in an Organized Health Care Education/Training Program; Admitting Provider Student in an Organized Health Care Education/Training Program; Emergency Provider Emergency Medicine; Visit Provider Student in an Organized Health Care Education/Training Program
DX: A41.9 Sepsis, unspecified organism (principal); J18.9 Pneumonia, unspecified organism; E86.1 Hypovolemia; E87.1 Hypo-osmolality and hyponatremia; D50.9 Iron deficiency anemia, unspecified; I33.0 Acute and subacute infective endocarditis; R04.2 Hemoptysis; Z78.1 Physical restraint status; F11.23 Opioid dependence with withdrawal; F15.10 Other stimulant abuse, uncomplicated; Z53.29 Procedure and treatment not carried out because of patient's decision for other reasons
CPT/HCPCS: 36415; 71045; 71260; 73201; 76705; 80048; 80053; 80074; 80202; 80307; 81001; 83540; 83550; 83605; 83615; 83690; 83735; 83880; 84100; 84145; 84484; 85025; 85610; 85652; 85730; 86140; 86331; 86480; 86635; 86703; 87015; 87040; 87077; 87081; 87086; 87116; 87186; 87206; 87400; 87811; 92610; 93005; 93306; 94664; 96361; 96365; 96366; 96367; 96375; 99285; A4649; J0295; J0696; J1885; J2060; J2543; J3370; J3475; J7030; Q9967; A9270

== ENCOUNTER 2024-12-11 21:24 | Emergency (ER) | payer MEDICAID, SELFPAY ==
[2024-12-11 21:30] VITALS: BP 144/90; RESP 17; TEMP 36.1; O2SAT 98; BMI 24.3
[2024-12-11 21:41] VITALS: PULSE 122; RESP 18; O2SAT 99
--- NOTE | 2024-12-11 22:14 | EDNOTE_ITS ---
ED Overdose RME/HPI General Chief Complaint: Overdose Stated Complaint: OVERDOSE Time Seen by Provider: 12/11/24 21:58 Arrival date/time: 12/11/24 21:24 RME / HPI RME / HPI Narrative: DR. VIZCARRA MAIN ED EVALUATION: 43 y/o male with Hx of Recreational Drug Use BIBA from home presents to ED due to fentanyl overdose x just [employer]. Patient was found unresponsive and administered Narcan. No other concerns or complaints expressed at this time. Intent: unwilling to say Context: Intentional Overdose: drug/ETOH problems Context: Accidental Overdose: wanted to get high Treatments Prior to Arrival: narcan Related Data Previous Rx's ?Medication ?Instructions ?Recorded naloxone 4 mg/actuation nasal spray 4 mg intranasal Q2 M PRN opioid 12/12/24 overdose #1 ea Allergies Allergy/AdvReac Type Severity Reaction Status Date / Time No Known Allergies Allergy Verified 12/11/24 21:41 Review of Systems Review of Systems Systems Reviewed: All systems reviewed, normal except as documented Past Medical History Past Medical History PSYCHO/SOCIAL: Positive Recreational Drug Use Social History SUBSTANCE USE: opiates SUBSTANCE LAST USED: just [employer] ED Exam Narrative Physical exam: Generally the patient is lethargic but arousable. Head is normocephalic atraumatic, eyes pupils are equal round reactive to light and approximately 5 mm bilaterally, heart regular rate and rhythm lungs clear to auscultation abdomen soft nondistended nontender no wounds neurologic exam patient arouses to loud verbal stimuli without focal motor deficit. Course Quality Measures none Orders Category Date Time Status Bedside Blood Glucose NOW Care 12/11/24 22:08 Active Drug Screen,Urine Stat Lab 12/11/24 21:55 Stop Req NALOXONE INJ (Syringe) [Narcan Inj (Syringe)] Med 12/11/24 22:14 Discontinued 2 mg IM X1 ONE NALOXONE INJ (Syringe) [Narcan Inj (Syringe)] Med 12/11/24 22:05 Discontinued 4 mg IM X1 ONE NALOXONE INJ (Vial) [Narcan Inj (Vial)] Med 12/11/24 22:07 Discontinued 2 mg IM X1 ONE Vital Signs Vital signs: Vital Signs Temperature 97.0 F 12/11/24 21:30 Respiratory Rate 17 12/11/24 21:30 Blood Pressure 144/90 H 12/11/24 21:30 Pulse Oximetry (%) 98 12/11/24 21:30 Oxygen Delivery Method Room Air 12/11/24 21:30 Overdose MDM Narrative MDM Narrative:: Scribe Attestation: I, Deidra Zelaya, am scribing for and in the presence of Dr. Vizcarra. Provider Notation: Although this document has been carefully reviewed, there may still be some phonetic and other typographical errors.? These errors are purely grammatical due to imperfections in the software program and should not be construed in any way to? compromise the substance of the patient's medical care during this visit. Patient received Narcan at scene. Patient received an additional 2 mg of Narcan IM here in the emergency room. He was observed for approximately 4 hours. There was no decompensation in condition. He has yet to give us a urine sample. O2 saturation on room air is 100%. Respiratory rate is 18. Blood pressure is normal. Patient is stable for discharge. Patient did admit to doing fentanyl tonight. Patient data External records reviewed:: [facility] previous records (Reviewed prior ED records from 02/22/24. Patient was seen for Lactic acid increased.) and EMS form Clinical information provided by:: EMS Social determinants that could affect healthcare access:: substance use (Fentanyl) Patient has the following chronic illnesses:: Recreational Drug Use How is presenting disease/condition affected by chronic disease/condition?: exacerbated by Evaluation data The following diagnostics were reviewed and interpreted by me:: lab results Lab and/or radiology exams considered but not ordered:: None Interpretation Summary: See MDM above. Medications / Prescriptions Medications or Prescriptions considered but not ordered:: None Medication administrations:: Medication Administration History Discontinued Medications Naloxone HCl (Naloxone Inj 1 Mg/Ml Syringe 2 Ml) 4 mg IM X1 ONE Stop: 12/11/24 22:06 Last Admin: 12/11/24 22:14 Dose: Not Given Documented By: BD Non-Admin Reason: Cancelled by Provider Naloxone HCl (Naloxone Inj 0.4 Mg/Ml Vial) 2 mg IM X1 ONE Stop: 12/11/24 22:08 Last Admin: 12/11/24 22:15 Dose: Not Given Documented By: BD Non-Admin Reason: Cancelled by Provider Naloxone HCl (Naloxone Inj 1 Mg/Ml Syringe 2 Ml) 2 mg IM X1 ONE Stop: 12/11/24 22:15 Last Admin: 12/11/24 22:18 Dose: 2 mg Documented By: BD See above Consultations Consultation(s) initiated? (list below): No Diagnosis Overdose Differential Diagnosis: cocaine intoxication, suicide attempt by multiple drug overdose, poisoning by opiate or related narcotic, drug overdose, acetaminophen overdose and accidental drug ingestion Most likely diagnosis given after review of the tests above:: None Admission Indicated Admission indicated?: not indicated Admission Request Was there a request for admission?: No Disposition Plan Disposition Plan: Discharge Discharge Attestation Discharge Attestation: The patient and all family members were given an opportunity to ask questions and understood the discharge instructions. Discharge instructions specifically effects, indications for sooner follow up or return to the emergency department, and the expected course of current diagnosis. Patient condition: Stable Discharge Plan Plan Patient Disposition: HOME (Self Care) Prescriptions/Referrals Prescriptions/Med Rec: New naloxone 4 mg/actuation spray,non-aerosol 4 mg intranasal Q2M PRN (Reason: opioid overdose) Qty: 1 0RF Rx Instructions: spray 1 dose into ONE nostril; alternate nostrils w each dose until help arrives Problem List Clinical Impression: Opioid overdose Patient/Caregiver Discharge Instructions Education Materials: ED Overdose, Opiate Additional Instructions: Get the prescription for the Narcan filled so you have it at home so your family members can use it if you overdose in the future. Print Language: Greenlandic Stand Alone Forms: [employer] Award Info., Patient Portal Info Letter
[2024-12-11] MEDS: NALOXONE INJ 1 MG/ML SYRINGE 2 ML 2 MG IM (22:18)
[2024-12-11 23:00] VITALS: BP 133/84; PULSE 82; RESP 16; TEMP 36.9; O2SAT 98
--- NOTE | 2024-12-12 00:43 | PD.EDADDENDU ---
Emergency Room Addendum Addendum Narrative: Patient's blood sugar here in the emergency room was 103.
[2024-12-12 04:09] VITALS: BP 128/81; PULSE 78; RESP 17; TEMP 36.9; O2SAT 97
== END 2024-12-12 04:15 | disposition home or self-care (01) ==
LOC: SERX 12-12 04:26
PROVIDERS: Emergency Provider Emergency Medicine
DX: T40.411A Poisoning by fentanyl or fentanyl analogs, accidental (unintentional), initial encounter (principal); Y92.009 Unspecified place in unspecified non-institutional (private) residence as the place of occurrence of the external cause
CPT/HCPCS: 80307; 80329; 81001; 85025; 96372; 99283; J2312; G0480